=== PATIENT | female | born 1965 | race African-American/Black ===

== ENCOUNTER 2020-11-09 22:04 | Inpatient (IN) | payer SELFPAY ==
[2020-11-09] MEDS ORDERED: Diltiazem 125 MG/25 ML ONE (22:50)
[2020-11-09] MEDS ORDERED: Vancomycin 1.5 GRAM/300 ML BAG 1.5 GM in Premix Bag 1 BAG IVPB SCH (23:00)
[2020-11-10] LABS: CKMB 1.6 ng/mL (0-6.6)
[2020-11-10] MEDS ORDERED: Acetaminophen 325 MG TAB PO PRN (00:01)
--- NOTE | 2020-11-10 00:29 | PDOC.BPN ---
- Brief Progress Note [id number] dictated
[2020-11-10] MEDS ORDERED: Heparin 10,000 UNITS/ 10 ML VIAL ONE (01:31)
[2020-11-10] MEDS ORDERED: Heparin 25,000 units/D5W 0 ML ONE (01:31)
[2020-11-10 01:55] LABS: SARS-CoV-2 NAA Rapid Test Not Detected (NotDetected)
[2020-11-10 01:55] LABS: #Lymphocytes 1.4 thou/uL (1.20-3.40); #Monocytes 0.5 thou/uL (0.11-0.59); #Neutrophils 4.8 thou/uL (1.40-6.50); %Basophils 0.6 % (0.0-1.0); %Eosinophils 0.1 % (0.0-10.0); %Lymphocytes 20.2 % (21.0-51.0); %Monocytes 7.4 % (0.0-10.0); %Neutrophils 71.6 % (42.0-75.0); Hemoglobin 9.7 g/dL (12.0-16.0); Mean Corpuscular HGB CONC 30.6 g/dL (32.0-36.0); Mean Corpuscular Hemoglobin 27.4 pg (27.0-31.0); Mean Corpuscular Volume 89.5 fL (78.0-98.0); Mean Platelet Volume 9.2 fL (7.4-10.4); Platelet Count 223 thou/uL (130-400); RBC Distribution Width 17.1 % (11.5-14.5); Red Blood Cell (RBC) Count 3.53 mill/uL (4.20-5.40); White Blood Cell (WBC) Count 6.3 thou/uL (4.8-10.8)
[2020-11-10 02:11] LABS: Anion Gap 20 mmol/L (10-20); BUN (Urea Nitrogen) 61 mg/dL (9.8-20.1); Calc. Creatinine Clearance 0 mL/min (70-130); Calcium 8.4 mg/dL (7.8-10.44); Carbon Dioxide 18 mmol/L (22-29); Chloride 100 mmol/L (98-107); Glucose 107 mg/dL (70-105); Potassium 5.2 mmol/L (3.5-5.1); Sodium 133 mmol/L (136-145)
[2020-11-10 02:16] LABS: Troponin I 0.046 ng/mL (< 0.028)
[2020-11-10 02:51] LABS: INR-International Normal Ratio 1.4; PTT 27.5 sec (22.9-36.1); Prothrombin Time 17.8 sec (12.0-14.7)
--- NOTE | 2020-11-10 02:51 | HP ---
CHIEF COMPLAINT: Shortness of breath and chest pain. HISTORY OF PRESENT ILLNESS: Ms. Vásquez is a 55-year-old female with past medical history of congestive heart failure, diastolic, atrial fibrillation, hypertension, among others, is being transferred from [facility] after she presented there with chest pain, shortness of breath, cough an hour prior to arrival. The patient reports that she was in the hospital at [facility] a week ago and discharged after 4 days for shortness of breath and possible pneumonia for which she finalized antibiotic few days ago. She was recently admitted to the hospital also for atrial fibrillation, with RVR. At that time, patient was discharged on Coumadin/warfarin. It is unclear if the patient is still taking it or not. PT/INR was not done in the emergency room. It has been ordered, still awaiting the results. The patient was found to be in atrial fibrillation with RVR. She was given diltiazem. Heart rate went down, but when she arrived to our emergency room, her heart rate was in the 140s. The patient started on diltiazem drip. Lab work, the patient was found to have an elevated creatinine of 2.1 with a baseline around 1.4. Potassium is 5.3. BNP is elevated at 2076. D-dimer also was elevated at 8.7. CT of the chest was not, done because of elevated creatinine. Chest x-ray showed cardiomegaly with worsening pulmonary vascular congestion and small bilateral effusions. In the emergency room, patient was given diltiazem, also given Lasix and antibiotics. No obvious source of infection. The patient is being admitted to the hospital for further management. PAST MEDICAL HISTORY: As mentioned above in history of present illness. PAST SURGICAL HISTORY: Reviewed and not pertinent. SOCIAL HISTORY: The patient drinks socially. She currently smokes 1 pack daily. Lives at home with family. ALLERGIES: NO KNOWN ALLERGIES. HOME MEDICATIONS: See home medication reconciliation form for updated medications. REVIEW OF SYSTEMS: Review of 14 systems negative except what is mentioned in the history of present illness. PHYSICAL EXAMINATION: GENERAL: The patient is awake, alert, in moderate distress. VITAL SIGNS: Blood pressure 102/88, pulse is 109, respiratory rate of 22, oxygen saturation 97% on 4 L/minute nasal cannula. HEAD AND NECK: Normocephalic, atraumatic. NECK: Supple. CHEST: Few bibasilar crackles. HEART: Irregularly irregular, tachycardic. ABDOMEN: Soft, nontender. Bowel sounds present. NEUROLOGIC: Awake, moving extremities. PSYCHIATRIC: Unable to assess. EXTREMITIES: Positive for edema. No clubbing or cyanosis. LABORATORY DATA: Troponin 0.04. Creatinine is 2.1. Potassium 5.3. D-dimer is 8.7. IMAGING: Chest x-ray as mentioned above in the history of present illness. ASSESSMENT AND PLAN: 1. Atrial fibrillation with rapid ventricular response. 2. Chest pain, rule out acute coronary syndrome. 3. Congestive heart failure, [id number]. 4. Elevated D-dimer. The patient was supposed to be on warfarin. It is unclear, if she is still taking it. Still awaiting on the PT/INR. In the mean time, patient was started on IV heparin drip, reassessed later, consider CT of the chest, if patient's kidney function improved. Otherwise, she may need a ventilation-perfusion lung scan to rule out pulmonary embolism, which is still in the differential diagnosis. 5. Consult Cardiology in a.m. for evaluation and further recommendations. 6. Reconcile home medications and continue diuresis. 7. Monitor kidney function and urine output. 8. [id number] renal failure. Expected length of stay, 2 midnights or more. Job ID: [id number]
[2020-11-10 03:40] VITALS: BMI 28.1
[2020-11-10] MEDS: Heparin 25,000 units/D5W 500 ML IVPB SCH (04:16)
[2020-11-10] MEDS: Heparin 10,000 UNITS/ 10 ML VIAL SLOW IVP SCH (04:21)
[2020-11-10 05:34] LABS: Troponin I 0.045 ng/mL (< 0.028)
[2020-11-10] MEDS ORDERED: Furosemide 40 MG/4 ML VIAL SLOW IVP SCH (09:00)
[2020-11-10] MEDS: Famotidine 20 MG TAB PO SCH (09:39)
[2020-11-10] MEDS: Metoprolol Tartrate 50 MG TAB PO SCH ×2 (09:39→20:57)
[2020-11-10] MEDS: Aspirin 325 mg Enteric Coated Tablet PO SCH (09:40)
[2020-11-10 11:25] LABS: Hemoglobin 9.5 g/dL (12.0-16.0); Platelet Count 235 thou/uL (130-400)
[2020-11-10] MEDS: Furosemide 40 MG/4 ML VIAL SLOW IVP SCH (13:41)
--- NOTE | 2020-11-10 14:30 | PDOC.HOSPP ---
- Subjective Encounter Date: 11/10/20 Subjective: The patient stated that her shortness of breath is better than yesterday. - Objective Vital Signs & Weight: Vital Signs (12 hours) Temp Pulse Ox 11/10/20 11:41 97.4 F L 11/10/20 07:40 98.1 F 11/10/20 03:32 98.3 F 99 Weight Weight 174 lb 9.698 oz Most Recent Monitor Data Heart Rate from ECG 89 NIBP 97/68 NIBP BP-Mean 101 Respiration from ECG 30 SpO2 96 I&O: 11/09/20 11/10/20 11/11/20 06:59 06:59 06:59 Intake Total 312 Output Total 200 Balance 112 Result Diagrams: 11/10/20 10:54 11/10/20 01:40 Hospitalist ROS - Medication Medications: Active Medications Generic Name Dose Route Start Last Admin Trade Name Freq PRN Reason Stop Dose Admin Acetaminophen 650 mg 11/10/20 00:01 11/10/20 13:41 Acetaminophen 325 Mg Tab PO 650 mg Q4H PRN Administration Headache/Fever/Mild Pain (1-3) Aspirin 325 mg 11/10/20 09:00 11/10/20 09:40 Aspirin 325 Mg Enteric Coated Tablet PO 325 mg DAILY SABINA Administration Famotidine 20 mg 11/10/20 09:00 11/10/20 09:39 Famotidine 20 Mg Tab PO 20 mg QAM SABINA Administration Furosemide 40 mg 11/10/20 14:00 11/10/20 13:41 Furosemide 40 Mg/4 Ml Vial SLOW IVP 40 mg 0600,1400 SABINA Administration Heparin Sodium (Porcine) 0 units 11/10/20 02:30 11/10/20 04:21 Heparin 10,000 Units/ 10 Ml Vial SLOW IVP 4,000 unit ASDIR SABINA Administration Protocol Heparin Sodium/Dextrose 500 mls @ 0 mls/hr 11/10/20 02:30 11/10/20 04:16 Heparin 25,000 Units/D5w IVPB 500 mls INF SABINA Administration Protocol Per Protocol Metoprolol Tartrate 50 mg 11/10/20 09:00 11/10/20 09:39 Metoprolol Tartrate 50 Mg Tab PO 50 mg BID SABINA Administration - Exam General Appearance: awake alert ENT: normocephalic atraumatic Neck: supple, no JVD Heart: irregular Respiratory: normal chest expansion, no tachypnea, rhonchi Gastrointestinal: soft Extremities: no cyanosis Hosp A/P (1) Acute on chronic heart failure with preserved ejection fraction Code(s): I50.33 - ACUTE ON CHRONIC DIASTOLIC (CONGESTIVE) HEART FAILURE Status: Acute (2) Atrial fibrillation with rapid ventricular response Code(s): I48.91 - UNSPECIFIED ATRIAL FIBRILLATION Status: Acute (3) Hypertension Code(s): I10 - ESSENTIAL (PRIMARY) HYPERTENSION Status: Acute (4) Acute respiratory failure with hypoxia Code(s): J96.01 - ACUTE RESPIRATORY FAILURE WITH HYPOXIA Status: Acute - Plan The patient is a 55-year-old female with past medical history of heart failure with preserved ejection fraction, atrial fibrillation, and hypertension who was admitted to the hospital for shortness of breath and chest pain. She was found to be in A. fib with RVR. The patient was on anticoagulation with warfarin but she has not been compliant. Currently in addition to IV diuresis the patient was placed on heparin drip to bridge to warfarin. We are her rate controlling her with diltiazem. Cardiology service consulted.
--- NOTE | 2020-11-10 16:29 | CON ---
DATE OF CONSULTATION: 11/10/2020 INDICATION FOR CONSULTATION: This is a 55-year-old female with atrial fibrillation. We were asked to see her and also she had a rapid ventricular response. HISTORY OF PRESENT ILLNESS: This is a very unfortunate 55-year-old female, was recently admitted to the hospital over at [facility]. She was seen by Dr. Potts on 10/19/2020 for atrial fibrillation. His note can be found in the chart in the computer. She has had some increasing shortness of breath. She does have a history of tobacco abuse. She has had a history of pneumonias recently. She apparently was doing quite well and was sent home supposedly on Coumadin therapy and metoprolol and then was to have followup. She did not do followup and it does not appear that she has been taking the Coumadin. Her list of medications do not include that. She has only taken aspirin, metoprolol, furosemide, and cefdinir. At this time, she says she was sitting at home. She actually was discharged this past Wednesday from the hospital at [facility] and then she presents here. She said last night, she was sitting at home, having dinner with her sister, suddenly became short of breath and presented here to the emergency room and was admitted for further evaluation. At this time, she remains in atrial fibrillation. She does appear to be somewhat uncomfortable. She is still short of breath. She has been placed back on metoprolol at 50 mg b.i.d. as well as diuretics. Her chest x-ray does show cardiomegaly and congestion. She did have an echocardiogram performed at [facility] on her last admission there, which showed ejection fraction of 60% to 65% with severe left atrial dilatation as well as severe mitral valve regurgitation. She denies any chest pain and she said that she has not had a cardiac catheterization. She is uncertain if she even had a stress test. PAST MEDICAL HISTORY: Significant for tobacco abuse, recent pneumonia, atrial fibrillation. ALLERGIES: NONE. MEDICATIONS: Prior to being admitted, she was taking; 1. Aspirin 81 mg a day. 2. Cefdinir 300 mg b.i.d. 3. Metoprolol 25 mg twice a day. 4. Furosemide 20 mg once a day. REVIEW OF SYSTEMS: Mainly, she complains of shortness of breath. Otherwise, 12-point review of systems is relatively unremarkable. PHYSICAL EXAMINATION: GENERAL: Reveals a thin stature female, who is in no acute distress, but does feel little bit uncomfortable and is more short of breath when she is lying down flat. VITAL SIGNS: Show a blood pressure of 97/68, earlier it was 107/53. She has had other blood pressures in the 80s to 90s systolically with diastolics in the 50s to 70s. Her heart rate is 88 at this time and shows atrial fibrillation, thus increased up to 110. Respiratory rate anywhere between 12 to 30 according to the records. O2 saturation is 97%. She is afebrile. HEENT: Head to be normocephalic and atraumatic. Carotid pulses are present. I did not hear any significant bruits. CHEST: Bilateral rales in the bases, also decreased respiratory sounds. I do not hear any rhonchi or wheezing. CARDIOVASCULAR: Reveals an irregularly irregular rhythm. She has a systolic murmur at the apex, 3/6. There were no other significant abnormalities noted. ABDOMEN: Unremarkable. She had positive bowel sounds. No significant abnormalities or tenderness are noted. Femoral pulses are decreased. Pedal pulses are difficult to palpate. I could not palpate the pedal pulses very easily. The popliteal pulses also were decreased, but are present. NEUROLOGIC: She appears to be intact. There was no gross focal deficits noted. LABORATORY DATA AND IMAGING STUDIES: Shows a WBC of 6.3, hematocrit was 31.6 with a hemoglobin 9.7, platelet count 223,000. Troponin-I is unremarkable is 0.04 and has remained at 0.04 to 0.05. Her sodium is 133, potassium 5.2, BUN 61, creatinine 2.16. Blood sugar was 107. EKG shows atrial fibrillation. Chest x-ray shows cardiomegaly with congestion and bilateral pleural effusions. Her creatinine back in September was 1.49, has now increased up to 2.16 with a BUN of 61. She may be slightly dehydrated. According to the records, she had a normal ejection fraction of 60% to 65%, and we could certainly advise increasing her IV fluids. She does have severe mitral valve regurgitation as well as severe left atrial dilatation and some of her congestion may be due to mitral valve regurgitation or due to continued pneumonia. IMPRESSION: 1. Again, atrial fibrillation with rapid ventricular response. We will resume her metoprolol that has already been ordered and hopefully the rate remains stable. If not, we may need to start her on digoxin, but certainly with the renal function at 2.16 to be somewhat dangerous to start digoxin. If we cannot control the heart rate, then we may need to add diltiazem. 2. She needs to be on oral anticoagulation for the atrial fibrillation to decrease the risk of embolic phenomenon. 3. History of tobacco abuse. She needs to absolutely stop smoking. 4. Severe mitral valve regurgitation. This may need to be dealt with. She may need to undergo mitral valve clip, depending on how she progresses. 5. History of chronic anemia of uncertain etiology. This may need to be further evaluated. Apparently, she has some type of lymphadenopathy. She had a CT scan performed. This may need to be also evaluated. 6. What appears to be peripheral vascular disease with decreased femoral popliteal and pedal pulses. Further recommendation will depend on how she responds to medical management at this time. I would agree with the present management. With the metoprolol, we will need to initiate some type of anticoagulation. She is not actually on heparin, that will suffice at this time. She had been on Lasix I believe, we can continue this, but would certainly be very careful not to worsen her renal function. She may need to be seen by Nephrology. Job ID: [id number]
[2020-11-10] MEDS ORDERED: FLU VACC QS2020-21(6MOS UP)/PF 60 MCG/0.5 ML SYRINGE IM ONE (21:00)
[2020-11-11] MEDS: Furosemide 40 MG/4 ML VIAL SLOW IVP SCH ×2 (06:17→14:21)
[2020-11-11] MEDS: Heparin 25,000 units/D5W 500 ML IVPB SCH (07:09)
[2020-11-11] MEDS: Famotidine 20 MG TAB PO SCH (10:02)
[2020-11-11] MEDS: Aspirin 325 mg Enteric Coated Tablet PO SCH (10:02)
[2020-11-11] MEDS: Metoprolol Tartrate 50 MG TAB PO SCH ×3 (10:02→23:21)
[2020-11-11] MEDS: Warfarin Sodium 5 MG TAB PO SCH (18:20)
--- NOTE | 2020-11-11 18:58 | PDOC.HOSPP ---
- Subjective Encounter Date: 11/11/20 Subjective: The patient's respiratory status is improving. Her rate is controlled. She has no new complaints today. - Objective Vital Signs & Weight: Vital Signs (12 hours) Temp Pulse Ox 11/11/20 11:00 97.7 F 11/11/20 08:09 96 11/11/20 07:00 97.2 F L Weight Weight 175 lb Most Recent Monitor Data Heart Rate from ECG 89 NIBP 97/66 NIBP BP-Mean 76 Respiration from ECG 22 SpO2 71 I&O: 11/10/20 11/11/20 11/12/20 06:59 06:59 06:59 Intake Total 312 664 Output Total 200 3917 606 Balance 611 -585 -389 Result Diagrams: 11/12/20 03:28 11/12/20 03:28 Hospitalist ROS - Medication Medications: Active Medications Generic Name Dose Route Start Last Admin Trade Name Freq PRN Reason Stop Dose Admin Acetaminophen 650 mg 11/10/20 00:01 11/10/20 13:41 Acetaminophen 325 Mg Tab PO 650 mg Q4H PRN Administration Headache/Fever/Mild Pain (1-3) Aspirin 325 mg 11/10/20 09:00 11/11/20 10:02 Aspirin 325 Mg Enteric Coated Tablet PO 325 mg DAILY SABINA Administration Famotidine 20 mg 11/10/20 09:00 11/11/20 10:02 Famotidine 20 Mg Tab PO 20 mg QAM SABINA Administration Furosemide 40 mg 11/10/20 14:00 11/11/20 14:21 Furosemide 40 Mg/4 Ml Vial SLOW IVP 40 mg 0600,1400 SABINA Administration Heparin Sodium (Porcine) 0 units 11/10/20 02:30 11/10/20 04:21 Heparin 10,000 Units/ 10 Ml Vial SLOW IVP 4,000 unit ASDIR SABINA Administration Protocol Heparin Sodium/Dextrose 500 mls @ 0 mls/hr 11/10/20 02:30 11/11/20 07:09 Heparin 25,000 Units/D5w IVPB 500 mls INF SABINA Administration Protocol Per Protocol Metoprolol Tartrate 50 mg 11/10/20 09:00 11/11/20 10:02 Metoprolol Tartrate 50 Mg Tab PO 50 mg BID SABINA Administration Warfarin Sodium 5 mg 11/11/20 17:00 11/11/20 18:20 Warfarin Sodium 5 Mg Tab PO 5 mg 1700 SABINA Administration - Exam General Appearance: awake alert ENT: normocephalic atraumatic Neck: supple, no JVD Heart: irregular Respiratory: normal chest expansion, no tachypnea, rhonchi Gastrointestinal: soft Neurological: cranial nerve grossly intact, no focal deficits Hosp A/P (1) Acute on chronic heart failure with preserved ejection fraction Code(s): I50.33 - ACUTE ON CHRONIC DIASTOLIC (CONGESTIVE) HEART FAILURE Status: Acute (2) Atrial fibrillation with rapid ventricular response Code(s): I48.91 - UNSPECIFIED ATRIAL FIBRILLATION Status: Acute (3) Hypertension Code(s): I10 - ESSENTIAL (PRIMARY) HYPERTENSION Status: Acute (4) Acute respiratory failure with hypoxia Code(s): J96.01 - ACUTE RESPIRATORY FAILURE WITH HYPOXIA Status: Acute - Plan The patient is a 55-year-old female with past medical history of heart failure with preserved ejection fraction, atrial fibrillation, and hypertension who was admitted to the hospital for shortness of breath and chest pain. She was found to be in A. fib with RVR. The patient was on anticoagulation with warfarin but she has not been compliant. Currently in addition to IV diuresis the patient was placed on heparin drip to bridge to warfarin. Check INR daily. She is currently rate controlled on metoprolol. Continue IV diuresis. The patient's anemia is normocytic normochromic, mild and chronic. This has been reported since 2014. No indication for work-up in the acute setting. The patient can follow with his PCP for anemia work-up. The patient also has suspicious lung lesion that was addressed during the recent hospital stay. Repeat CT scan of the chest was recommended in 3 months to evaluate the progression or resolution of the lesion.
[2020-11-12 03:59] LABS: #Eosinphils 0.1 thou/uL (0.0-0.7); #Lymphocytes 1.4 thou/uL (1.20-3.40); #Monocytes 0.5 thou/uL (0.11-0.59); #Neutrophils 3.3 thou/uL (1.40-6.50); %Basophils 0.6 % (0.0-1.0); %Eosinophils 1.6 % (0.0-10.0); %Lymphocytes 26.3 % (21.0-51.0); %Monocytes 9.5 % (0.0-10.0); Hemoglobin 10.3 g/dL (12.0-16.0); Mean Corpuscular HGB CONC 32.9 g/dL (32.0-36.0); Mean Corpuscular Hemoglobin 29.5 pg (27.0-31.0); Mean Corpuscular Volume 89.5 fL (78.0-98.0); Mean Platelet Volume 8.7 fL (7.4-10.4); Platelet Count 242 thou/uL (130-400); RBC Distribution Width 17.3 % (11.5-14.5); White Blood Cell (WBC) Count 5.3 thou/uL (4.8-10.8)
[2020-11-12 04:16] LABS: Anion Gap 16 mmol/L (10-20); BUN (Urea Nitrogen) 72 mg/dL (9.8-20.1); Calc. Creatinine Clearance 37 mL/min (70-130); Calcium 8.3 mg/dL (7.8-10.44); Carbon Dioxide 21 mmol/L (22-29); Chloride 99 mmol/L (98-107); Glucose 101 mg/dL (70-105); Potassium 3.8 mmol/L (3.5-5.1); Sodium 132 mmol/L (136-145)
[2020-11-12] MEDS: Furosemide 40 MG/4 ML VIAL SLOW IVP SCH ×2 (05:54→16:09)
[2020-11-12] MEDS: Heparin 25,000 units/D5W 500 ML IVPB SCH (05:54)
[2020-11-12] MEDS: Famotidine 20 MG TAB PO SCH (09:11)
[2020-11-12] MEDS: Metoprolol Tartrate 50 MG TAB PO SCH ×2 (09:11→20:45)
[2020-11-12] MEDS: Aspirin 325 mg Enteric Coated Tablet PO SCH (09:11)
[2020-11-12 12:29] LABS: INR-International Normal Ratio 1.2; Prothrombin Time 15.1 sec (12.0-14.7)
[2020-11-12] MEDS: Warfarin Sodium 5 MG TAB PO SCH (16:10)
--- NOTE | 2020-11-12 17:58 | PDOC.HOSPP ---
- Subjective Encounter Date: 11/12/20 Subjective: No new complaints. - Objective Vital Signs & Weight: Vital Signs (12 hours) Temp Pulse Ox 11/12/20 15:58 97.3 F L 11/12/20 11:24 97.6 F 11/12/20 07:51 93 L 11/12/20 07:00 97.4 F L Weight Weight 173 lb Most Recent Monitor Data Heart Rate from ECG 91 NIBP 104/71 NIBP BP-Mean 82 Respiration from ECG 24 SpO2 88 I&O: 11/11/20 11/12/20 11/13/20 06:59 06:59 06:59 Intake Total 664 619 Output Total 1300 1450 Balance -529 -022 Result Diagrams: 11/12/20 03:28 11/12/20 03:28 Hospitalist ROS - Medication Medications: Active Medications Generic Name Dose Route Start Last Admin Trade Name Freq PRN Reason Stop Dose Admin Acetaminophen 650 mg 11/10/20 00:01 11/10/20 13:41 Acetaminophen 325 Mg Tab PO 650 mg Q4H PRN Administration Headache/Fever/Mild Pain (1-3) Aspirin 325 mg 11/10/20 09:00 11/12/20 09:11 Aspirin 325 Mg Enteric Coated Tablet PO 325 mg DAILY SABINA Administration Famotidine 20 mg 11/10/20 09:00 11/12/20 09:11 Famotidine 20 Mg Tab PO 20 mg QAM SABINA Administration Furosemide 40 mg 11/10/20 14:00 11/12/20 16:09 Furosemide 40 Mg/4 Ml Vial SLOW IVP 40 mg 0600,1400 SABINA Administration Heparin Sodium (Porcine) 0 units 11/10/20 02:30 11/10/20 04:21 Heparin 10,000 Units/ 10 Ml Vial SLOW IVP 4,000 unit ASDIR SABINA Administration Protocol Heparin Sodium/Dextrose 500 mls @ 0 mls/hr 11/10/20 02:30 11/12/20 05:54 Heparin 25,000 Units/D5w IVPB 500 mls INF SABINA Administration Protocol Per Protocol Metoprolol Tartrate 50 mg 11/10/20 09:00 11/12/20 09:11 Metoprolol Tartrate 50 Mg Tab PO 50 mg BID SABINA Administration Warfarin Sodium 5 mg 11/11/20 17:00 11/12/20 16:10 Warfarin Sodium 5 Mg Tab PO 5 mg 1700 SABINA Administration - Exam General Appearance: awake alert ENT: normocephalic atraumatic Neck: supple, no JVD Heart: irregular Respiratory: normal chest expansion, no tachypnea Neurological: cranial nerve grossly intact, no focal deficits Hosp A/P (1) Acute on chronic heart failure with preserved ejection fraction Code(s): I50.33 - ACUTE ON CHRONIC DIASTOLIC (CONGESTIVE) HEART FAILURE Status: Acute (2) Atrial fibrillation with rapid ventricular response Code(s): I48.91 - UNSPECIFIED ATRIAL FIBRILLATION Status: Acute (3) Hypertension Code(s): I10 - ESSENTIAL (PRIMARY) HYPERTENSION Status: Acute (4) Acute respiratory failure with hypoxia Code(s): J96.01 - ACUTE RESPIRATORY FAILURE WITH HYPOXIA Status: Acute - Plan The patient is a 55-year-old female with past medical history of heart failure with preserved ejection fraction, atrial fibrillation, and hypertension who was admitted to the hospital for shortness of breath and chest pain. She was found to be in A. fib with RVR. The patient was on anticoagulation with warfarin but she has not been compliant. Currently in addition to IV diuresis the patient was placed on heparin drip to bridge to warfarin. Check INR daily. She is currently rate controlled on metoprolol. Continue IV diuresis. She is saturating well on room air and should be medically ready for DC once cleared by cardiology. The patient's anemia is normocytic normochromic, mild and chronic. This has been reported since 2013. No indication for work-up in the acute setting. The patient can follow with his PCP for anemia work-up. The patient also has suspicious lung lesion that was addressed during the recent hospital stay. Repeat CT scan of the chest was recommended in 3 months to evaluate the progression or resolution of the lesion.
[2020-11-13 04:40] LABS: #Eosinphils 0.1 thou/uL (0.0-0.7); #Lymphocytes 1.2 thou/uL (1.20-3.40); #Monocytes 0.2 thou/uL (0.11-0.59); #Neutrophils 2.6 thou/uL (1.40-6.50); %Basophils 0.2 % (0.0-1.0); %Eosinophils 3.2 % (0.0-10.0); %Lymphocytes 29.1 % (21.0-51.0); %Monocytes 5.6 % (0.0-10.0); %Neutrophils 61.9 % (42.0-75.0); Hemoglobin 9.4 g/dL (12.0-16.0); Mean Corpuscular HGB CONC 31.9 g/dL (32.0-36.0); Mean Corpuscular Hemoglobin 28.7 pg (27.0-31.0); Mean Platelet Volume 9.2 fL (7.4-10.4); Platelet Count 240 thou/uL (130-400); RBC Distribution Width 17.3 % (11.5-14.5); Red Blood Cell (RBC) Count 3.29 mill/uL (4.20-5.40); White Blood Cell (WBC) Count 4.2 thou/uL (4.8-10.8)
[2020-11-13 05:08] LABS: Anion Gap 11 mmol/L (10-20); BUN (Urea Nitrogen) 49 mg/dL (9.8-20.1); Calc. Creatinine Clearance 58 mL/min (70-130); Calcium 8.1 mg/dL (7.8-10.44); Carbon Dioxide 29 mmol/L (22-29); Chloride 99 mmol/L (98-107); Glucose 94 mg/dL (70-105); Potassium 3.7 mmol/L (3.5-5.1); Sodium 135 mmol/L (136-145)
[2020-11-13] MEDS: Heparin 25,000 units/D5W 500 ML IVPB SCH (05:31)
[2020-11-13 05:35] LABS: PTT 28.7 sec (22.9-36.1)
[2020-11-13 05:36] LABS: INR-International Normal Ratio 1.1; Prothrombin Time 14.8 sec (12.0-14.7)
[2020-11-13] MEDS: Heparin 10,000 UNITS/ 10 ML VIAL SLOW IVP SCH ×2 (06:20→13:04)
[2020-11-13] MEDS: Famotidine 20 MG TAB PO SCH (09:35)
[2020-11-13] MEDS: Furosemide 20 MG TAB PO SCH (09:37)
[2020-11-13] MEDS: Aspirin 325 mg Enteric Coated Tablet PO SCH (09:37)
[2020-11-13] MEDS: Metoprolol Tartrate 50 MG TAB PO SCH (12:55)
[2020-11-13] MEDS ORDERED: Heparin 25,000 units/D5W 500 ML IV SCH (13:30)
[2020-11-13] MEDS ORDERED: Heparin 10,000 UNITS/ 10 ML VIAL SLOW IVP SCH ×2 (13:30→14:15)
--- NOTE | 2020-11-13 14:17 | PDOC.HOSPP ---
- Subjective Encounter Date: 11/13/20 Subjective: Patient was hypotensive this morning. She did not have any symptoms during the episode. - Objective Vital Signs & Weight: Vital Signs (12 hours) Temp Pulse Resp BP Pulse Ox 11/13/20 12:53 98.4 F 104 H 18 98/57 L 93 L 11/13/20 09:32 86/53 L 11/13/20 08:30 95/58 L 11/13/20 07:44 85/67 L 11/13/20 07:36 98 11/13/20 07:27 97.5 F L 105 H 18 78/60 L 98 11/13/20 03:11 97.5 F L 108 H 18 102/57 L 95 Weight Weight 140 lb 9 oz Most Recent Monitor Data Heart Rate from ECG 100 NIBP 95/73 NIBP BP-Mean 80 Respiration from ECG 17 SpO2 88 I&O: 11/12/20 11/13/20 11/14/20 06:59 06:59 06:59 Intake Total 619 1610 Output Total 1450 2500 Balance -831 -890 Result Diagrams: 11/13/20 04:14 11/13/20 04:14 Hospitalist ROS - Medication Medications: Active Medications Generic Name Dose Route Start Last Admin Trade Name Freq PRN Reason Stop Dose Admin Acetaminophen 650 mg 11/10/20 00:01 11/10/20 13:41 Acetaminophen 325 Mg Tab PO 650 mg Q4H PRN Administration Headache/Fever/Mild Pain (1-3) Famotidine 20 mg 11/10/20 09:00 11/13/20 09:35 Famotidine 20 Mg Tab PO 20 mg QAM SABINA Administration Furosemide 20 mg 11/13/20 09:00 11/13/20 09:37 Furosemide 20 Mg Tab PO Not Given DAILY SABINA Metoprolol Tartrate 50 mg 11/10/20 09:00 11/13/20 12:55 Metoprolol Tartrate 50 Mg Tab PO 50 mg BID SABINA Administration - Exam General Appearance: awake alert ENT: normocephalic atraumatic Neck: supple, no JVD Respiratory: normal chest expansion, no tachypnea Extremities: no cyanosis Neurological: cranial nerve grossly intact Hosp A/P (1) Acute on chronic heart failure with preserved ejection fraction Code(s): I50.33 - ACUTE ON CHRONIC DIASTOLIC (CONGESTIVE) HEART FAILURE Status: Acute (2) Atrial fibrillation with rapid ventricular response Code(s): I48.91 - UNSPECIFIED ATRIAL FIBRILLATION Status: Acute (3) Hypertension Code(s): I10 - ESSENTIAL (PRIMARY) HYPERTENSION Status: Acute (4) Acute respiratory failure with hypoxia Code(s): J96.01 - ACUTE RESPIRATORY FAILURE WITH HYPOXIA Status: Acute - Plan The patient is a 55-year-old female with past medical history of heart failure with preserved ejection fraction, atrial fibrillation, and hypertension who was admitted to the hospital for shortness of breath and chest pain. She was found to be in A. fib with RVR. The patient was on anticoagulation with warfarin but she has not been compliant. Currently in addition to IV diuresis the patient was placed on heparin drip to bridge to warfarin. Check INR daily. She is currently rate controlled on metoprolol. She is saturating well on room air. Diuretics were held today due to hypotension. Continue heparin until INR is therapeutic. The patient's anemia is normocytic normochromic, mild and chronic. This has been reported since 2014. No indication for work-up in the acute setting. The patient can follow with his PCP for anemia work-up. The patient also has suspicious lung lesion that was addressed during the recent hospital stay. Repeat CT scan of the chest was recommended in 3 months to evaluate the progression or resolution of the lesion.
[2020-11-13] MEDS: Heparin 25,000 units/D5W 500 ML IV SCH (14:48)
--- NOTE | 2020-11-13 16:23 | PDOC.CPN ---
- Subjective Date: 11/13/20 Time: 14:00 Interval history: Patient was hypotensive overnight, she denies any dizziness or weakness. Patient states she had a good night and slept well, she denies any palpitations, chest pain, shortness of breath. - Review of Systems General: denies: fever/chills, weight/appetite/sleep changes, night sweats, fatigue Respiratory: denies: cough, congestion, shortness of breath, exercise intolerance Cardiovascular: denies: chest pain, palpitation, edema, paroxysmal nocturnal dyspnea, orthopnea Gastrointestinal: denies: nausea, vomiting, diarrhea, constipation, abd pain, GI bleeding Musculoskeletal: denies: pain, tenderness, stiffness, swelling, arthritis/arthralgias Neurological: denies: numbness, syncope, seizure, weakness - Objective Allergies/Adverse Reactions: Allergies Allergy/AdvReac Type Severity Reaction Status Date / Time No Known Allergies Allergy Verified 09/23/14 00:27 Visit Medications: Current Medications Acetaminophen (Acetaminophen 325 Mg Tab) 650 mg PO Q4H PRN PRN Reason: Headache/Fever/Mild Pain (1-3) Last Admin: 11/10/20 13:41 Dose: 650 mg Documented by: Aspirin (Aspirin 81 Mg Enteric Coated Tablet) 81 mg PO DAILY [facility] Famotidine (Famotidine 20 Mg Tab) 20 mg PO QAM [facility] Last Admin: 11/13/20 09:35 Dose: 20 mg Documented by: Furosemide (Furosemide 20 Mg Tab) 20 mg PO DAILY [facility] Last Admin: 11/13/20 09:37 Dose: Not Given Documented by: Heparin Sodium (Porcine) (Heparin 10,000 Units/ 10 Ml Vial) 0 units SLOW IVP WILLCALL [facility] Last Admin: 11/13/20 14:48 Dose: 2,376 unit Documented by: Heparin Sodium/Dextrose (Heparin 25,000 Units/D5w) 500 mls @ 0 mls/hr IV INF [facility]; Protocol Last Admin: 11/13/20 14:48 Dose: 500 mls Documented by: Metoprolol Tartrate (Metoprolol Tartrate 50 Mg Tab) 50 mg PO BID [facility] Last Admin: 11/13/20 12:55 Dose: 50 mg Documented by: Warfarin Sodium (Warfarin Sodium 7.5 Mg Tab) 7.5 mg PO 1700 [facility] Vital Signs & Weight: Vital Signs Temp Pulse Resp BP Pulse Ox 11/13/20 12:53 98.4 F 104 H 18 98/57 L 93 L 11/13/20 09:32 86/53 L 11/13/20 08:30 95/58 L 11/13/20 07:44 85/67 L 11/13/20 07:36 98 11/13/20 07:27 97.5 F L 105 H 18 78/60 L 98 Weight 140 lb 9 oz - Quality Measures Condition: Atrial Fibrillation/Flutter (hx or current), Heart Failure CV meds: Beta Aydin: Yes, RENETTA/ARB: No (Hypotension), ASA: Yes, Anticoagulant: Yes - Medication Contraindications No RENETTA/ARB reason: Medical contraindication - Physical Exam General: alert & oriented x3, appears well, no apparent distress HEENT: mucus membranes moist Neck: supple neck, midline trachea, no JVD/HJR, no masses, no bruit Cardiac: irregularly regular, systolic murmur Lungs: clear to auscultation, normal breath sounds, normal exam, no wheeze, rales, rhonchi Neuro: grossly intact, motor function intact, sensory function intact Abdomen: active bowel sounds, soft, non-tender Extremities: no cyanosis, no clubbing, no edema, 2+ popliteal, 2+ Posterior Tibial, 2+ Dorsalis Pedus Skin: clear Musculoskeletal: normal range of motion, no pain, no fluid collection - Labs Result Diagrams: 11/13/20 04:14 11/13/20 04:14 Troponin/CKMB CK-MB (CK-2) 1.6 ng/mL (0-6.6) 11/09/20 23:00 Troponin I 0.045 ng/mL (< 0.028) H 11/10/20 04:54 - EKG Interpretation EKG Method: Telemetry EKG shows: atrial fibrillation - Assessment/Plan Assessment/Plan: 1. Atrial fibrillation with rapid ventricular response: Patient remains in a- fib, her heart rate has maintained in the 80's overnight, she did have one small episode this morning at 0600 where her HR elevated to the 120's, this did not sustain. She is being re-started on Coumadin, she remains on the Heparin drip until her INR reaches 2.0. 2. History of tobacco abuse: strongly advised smoking cessation 3. Severe mitral valve regurgitation: She may need a mitral clip in the future, she seems to be asymptomatic at this time, she denies any chest pain, shortness of breath, ORDONEZ, orthopnea, BLE edema. She has seen Dr. Bustamante in the past, she can follow-up with him as an outpatient for this since she is asymptomatic at this time. 4. History of chronic anemia: treated by primary care services 5. Hypotension: the patient had several readings of hypotension over night, the patient was asymptomatic. Her dose of Lasix was held. 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 She will need to follow-up with Coumadin clinic and Dr. Bustamante as an outpatient. Pt.seen and eval.by me I agree with the A/P by the HOG RAISER. Chest clear. Irreg/irreeg. No edema. Home when INR stable [facility]
[2020-11-13] MEDS: Warfarin Sodium 7.5 MG TAB PO SCH (16:41)
[2020-11-13] MEDS: Metoprolol Tartrate 25 MG TAB PO SCH (20:52)
[2020-11-13 21:32] LABS: PTT 133.8 sec (22.9-36.1)
[2020-11-14] MEDS: Heparin 25,000 units/D5W 500 ML IV SCH (04:26)
[2020-11-14 04:43] LABS: #Eosinphils 0.1 thou/uL (0.0-0.7); #Lymphocytes 1.3 thou/uL (1.20-3.40); #Monocytes 0.5 thou/uL (0.11-0.59); #Neutrophils 3.2 thou/uL (1.40-6.50); %Basophils 0.7 % (0.0-1.0); %Monocytes 8.7 % (0.0-10.0); %Neutrophils 62.5 % (42.0-75.0); Hemoglobin 8.9 g/dL (12.0-16.0); Mean Corpuscular HGB CONC 31.2 g/dL (32.0-36.0); Mean Corpuscular Hemoglobin 27.5 pg (27.0-31.0); Mean Platelet Volume 8.5 fL (7.4-10.4); Platelet Count 235 thou/uL (130-400); RBC Distribution Width 17.2 % (11.5-14.5); Red Blood Cell (RBC) Count 3.23 mill/uL (4.20-5.40); White Blood Cell (WBC) Count 5.1 thou/uL (4.8-10.8)
[2020-11-14 04:46] LABS: INR-International Normal Ratio 1.3; Prothrombin Time 16.9 sec (12.0-14.7)
[2020-11-14 04:53] LABS: PTT 125.8 sec (22.9-36.1)
[2020-11-14 05:12] LABS: Anion Gap 13 mmol/L (10-20); BUN (Urea Nitrogen) 38 mg/dL (9.8-20.1); Calc. Creatinine Clearance 44 mL/min (70-130); Calcium 8.1 mg/dL (7.8-10.44); Carbon Dioxide 26 mmol/L (22-29); Chloride 99 mmol/L (98-107); Glucose 114 mg/dL (70-105); Potassium 3.5 mmol/L (3.5-5.1); Sodium 134 mmol/L (136-145)
[2020-11-14] MEDS ORDERED: Aspirin 81 mg Enteric Coated Tablet PO SCH (09:00)
[2020-11-14] MEDS: Furosemide 20 MG TAB PO SCH (09:08)
[2020-11-14] MEDS: Famotidine 20 MG TAB PO SCH (09:08)
[2020-11-14] MEDS: Metoprolol Tartrate 25 MG TAB PO SCH (09:08)
[2020-11-14 13:20] LABS: PTT 143.3 sec (22.9-36.1)
--- NOTE | 2020-11-14 13:28 | PDOC.DS.DS ---
Provider - Provider Date of Admission: 11/09/20 23:44 Date of Discharge: 11/14/20 Admitting Provider: Eitan Wong MD Primary Care Physician: ALVINO SILVA MD Course - Hospital Course Hospital Course: The patient is a 55-year-old female with past medical history of atrial fibrillation on anticoagulation with Coumadin and severe mitral valve regurgitation who was admitted to the hospital for worsening shortness of breath. She was found to be in atrial fibrillation with rapid ventricular response and was placed on diltiazem drip for rate control. This was s ubsequently transitioned to oral metoprolol and rate control was achieved. The patient was on digoxin at home which was discontinued due to abnormal kidney function. She was diuresed gently leading to improvement of her shortness of breath which was likely due to mild pulmonary edema. Cardiology recommended that the patient's mitral valve regurgitation to be dealt with at some point. 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 Resuscitation Status: 11/10/20 00:01 Resuscitation Status Routine Resuscitation Status: FULL: Full Resuscitation - Labs Lab Results: 11/14/20 04:25 11/14/20 04:25 Abnormal Lab Results - Last 48 hrs 11/12/20 16:22: APTT 66.3 H 11/13/20 04:14: Sodium 135 L, BUN 49 H, Creatinine 1.33 H 11/13/20 04:14: WBC 4.2 L, RBC 3.29 L, Hgb 9.4 L, Hct 29.6 L, MCHC 31.9 L, RDW 17.3 H 11/13/20 04:14: PT 14.8 H 11/13/20 12:25: APTT 57.0 H 11/13/20 20:51: APTT 133.8 H* 11/14/20 00:33: APTT 41.4 H 11/14/20 04:25: Sodium 134 L, BUN 38 H, Creatinine 1.43 H 11/14/20 04:25: RBC 3.23 L, Hgb 8.9 L, Hct 28.5 L, MCHC 31.2 L, RDW 17.2 H 11/14/20 04:25: PT 16.9 H, APTT 125.8 H* 11/14/20 12:56: APTT 143.3 H* - Physical Exam Vitals: Vital Signs (12 hours) Temp Pulse Resp BP Pulse Ox 11/14/20 12:26 97.8 F 102 H 18 100/56 L 97 11/14/20 08:41 98.8 F 104 H 20 98/62 98 11/14/20 04:00 98.8 F 106 H 18 121/70 97 Weight Weight 171 lb Most Recent Monitor Data Heart Rate from ECG 100 NIBP 95/73 NIBP BP-Mean 80 Respiration from ECG 17 SpO2 88 Physical Exam: The patient was seen and examined on the day of discharge. Problem - Problem (1) Acute on chronic heart failure with preserved ejection fraction Code(s): I50.33 - ACUTE ON CHRONIC DIASTOLIC (CONGESTIVE) HEART FAILURE Status: Acute (2) Atrial fibrillation with rapid ventricular response Code(s): I48.91 - UNSPECIFIED ATRIAL FIBRILLATION Status: Acute (3) Hypertension Code(s): I10 - ESSENTIAL (PRIMARY) HYPERTENSION Status: Acute (4) Acute respiratory failure with hypoxia Code(s): J96.01 - ACUTE RESPIRATORY FAILURE WITH HYPOXIA Status: Acute Plan - Discharge Medications Prescriptions: Metoprolol Tartrate [Lopressor] 25 mg PO BID #60 tab Home Medications: Medication Instructions Recorded Confirmed Type Aspirin [Ecotrin Low Strength] 81 mg PO DAILY #30 tab 10/21/20 11/10/20 Rx Warfarin Sodium [Coumadin] 5 mg PO 1700 #30 tab 10/21/20 11/10/20 Rx Metoprolol Tartrate [Lopressor] 25 mg PO BID #60 tab 11/14/20 Rx Allergies: No Known Allergies Allergy (Verified 09/23/14 00:27) PER E.R.VISIT NOTES - Follow up Plan Referrals: ALVINO SILVA MD [Primary Care Provider] - Disposition: HOME Quality - Care Measures CORE MEASURES:: N/A
[2020-11-14 15:59] VITALS: BP 102/62; TEMP 98.5
[2020-11-14] MEDS: Warfarin Sodium 7.5 MG TAB PO SCH (16:36)
== END 2020-11-14 17:14 | disposition home or self-care (01) | DRG 291 ==
LOC: ERS 22:04 → IMCU/EMU 23:44 → 2NO 11-12 21:09
PROVIDERS: ADMIT Internal Medicine; ATTEND Internal Medicine
DX: I13.0 Hypertensive heart and chronic kidney disease with heart failure and stage 1 through stage 4 chronic kidney disease, or unspecified chronic kidney disease (principal); I50.33 Acute on chronic diastolic (congestive) heart failure; J96.01 Acute respiratory failure with hypoxia; N17.9 Acute kidney failure, unspecified; Z20.828 Contact with and (suspected) exposure to other viral communicable diseases; I48.91 Unspecified atrial fibrillation; N18.9 Chronic kidney disease, unspecified; D64.9 Anemia, unspecified; I95.9 Hypotension, unspecified; R79.1 Abnormal coagulation profile; I34.0 Nonrheumatic mitral (valve) insufficiency; Z87.891 Personal history of nicotine dependence; Z71.6 Tobacco abuse counseling
CPT/HCPCS: 0240U; 36415; 80048; 82553; 83605; 84484; 85025; 85610; 85730; 93005; 94760; 96365; 96366; 96368; J1644; J1940; J3370

== ENCOUNTER 2020-11-21 21:22 | Inpatient (IN) | payer SELFPAY ==
[2020-11-21 22:03] LABS: #Lymphocytes 1.3 thou/uL (1.20-3.40); #Monocytes 0.4 thou/uL (0.11-0.59); #Neutrophils 6.6 thou/uL (1.40-6.50); %Basophils 0.2 % (0.0-1.0); %Eosinophils 0.1 % (0.0-10.0); %Lymphocytes 15.5 % (21.0-51.0); %Monocytes 4.3 % (0.0-10.0); Hemoglobin 9.3 g/dL (12.0-16.0); Mean Corpuscular HGB CONC 29.8 g/dL (32.0-36.0); Mean Corpuscular Hemoglobin 25.9 pg (27.0-31.0); Mean Corpuscular Volume 86.9 fL (78.0-98.0); Platelet Count 320 thou/uL (130-400); RBC Distribution Width 17.5 % (11.5-14.5); White Blood Cell (WBC) Count 8.2 thou/uL (4.8-10.8)
[2020-11-21] MEDS ORDERED: Cefepime 2 GM VIAL ONE (22:09)
[2020-11-21 22:17] LABS: ALT (SGPT) 51 U/L (8-55); AST (SGOT) 50 U/L (5-34); Albumin 2.7 g/dL (3.5-5.0); Alkaline Phosphatase 202 U/L (40-110); Anion Gap 29 mmol/L (10-20); BUN (Urea Nitrogen) 117 mg/dL (9.8-20.1); Bilirubin, Total 2.1 mg/dL (0.2-1.2); Calc. Creatinine Clearance 0 mL/min (70-130); Calcium 8.4 mg/dL (7.8-10.44); Carbon Dioxide 12 mmol/L (22-29); Chloride 98 mmol/L (98-107); Globulin 5.6 g/dL (2.4-3.5); Glucose 96 mg/dL (70-105); Potassium 5.9 mmol/L (3.5-5.1); Protein, Total 8.3 g/dL (6.0-8.3); Sodium 133 mmol/L (136-145)
[2020-11-21 22:30] LABS: Bacteria/HPF 4+ HPF (None Seen); Bilirubin 1+ (Negative); Blood, Urine 1+ (Negative); Clarity Extra Turbid (Clear); Glucose, Urine (Dipstick) 50 mg/dL (Negative); Ketone, Urine Negative (Negative); Leukocyte 250 Leu/uL (Negative); Nitrite Negative (Negative); Protein, Urine (Dipstick) 300 mg/dL (Neg-Trace); Specific Gravity, Urine 1.021 (1.002-1.036); Urobilinogen 3 mg/dL (Less than 2); WBC/HPF Greater than 50 HPF (0-3); pH, Urine 5.5 (5.0-9.0)
[2020-11-21 22:31] LABS: Analyzer IN Cardio ER; CO2 Tension 28.6 mmHg (35.0-45.0); Calcium, Ionized (arterial) 1.05 mmol/L (1.12-1.30); Carboxyhemoglobin (COHb) 0.3 gm% (0.0-3.0); Hemoglobin (Hb) 10.1 g/dL (12.0-16.0); O2 Tension (PaO2), arterial 208.1 mmHg (80.0-100.0); Potassium - ABG Lab 5.83 mmol/L (3.70-5.30); pH, Arterial 7.31 (7.35-7.45)
[2020-11-21] MEDS ORDERED: Calcium Chloride 1 GM/10 ML Abboject SYRINGE ONE (22:31)
[2020-11-21] MEDS ORDERED: Dextrose 50% Abboject 50 ML SYRINGE ONE (22:31)
[2020-11-21] MEDS ORDERED: Insulin Regular 300 UNITS/3 ML VIAL ONE (22:31)
[2020-11-21 22:33] LABS: Puncture Site RBA
[2020-11-21] MEDS ORDERED: Vancomycin 1 GM/200 ML BAG ONE (22:47)
[2020-11-21] MEDS ORDERED: Norepinephrine 4 MG/4 ML VIAL ONE (23:20)
[2020-11-21] MEDS ORDERED: Sodium Chloride 0.9% 1,000 ML IV SCH (23:30)
--- NOTE | 2020-11-21 23:34 | PDOC.HHP ---
Hospitalist HPI - History of Present Illness Dyspnea History of Present Illness: This is a 55-year-old female patient with a history of CHF hypertension pneumonia, atrial fibrillation on Coumadin who presents here for 2-day history of worsening shortness of breath. She presented to [place] where she was [facility] evaluated and transferred here for higher level care. Of note she was admitted here on 11/09/2020 discharged on 11/14/2020 on account of worsening shortness of breath and found to be in atrial fibrillation with RVR. Heart rate was controlled on diltiazem drip and subsequently transitioned to oral metoprolol. She was noted to have mitral regurgitation and left atrial enlargement however on cardiology assessment this was to be taking care of an outpatient basis. She was generally stable at the time of discharge. Upon going home however she noticed that she did having palpitations 2 days ago and this was associated with worsening shortness of breath for which she presented to [place]. Over the at presentation she was tachycardic with heart rate of 149, hypotensive with temperature 95.5, saturation 94 on nonrebreather oxygen. Her BP was 71/57. Her labs showed anemia with hemoglobin 9.7 around her baseline at discharge a week ago. She however had mild hyponatremia of 133, potassium 6.0 from 3.5 at last discharge. Creatinine was 5.13 from a baseline of 1.43 a week ago at discharge. A D-dimer was elevated at 7.99 however INR was 3.9. She was in A. fib with RVR. She was given 2 L normal saline, ondansetron, 0.5 mg IV digoxin. Due to the difficulty of peripheral IV line she received a femoral line prior to transfer here for higher level care. On arrival here, she was still hypotensive with systolic blood pressure 78. She received an extra liter of normal saline and started on Levophed BP subsequently improved to systolic in the 120s. Heart rate was 119, respiration 22 and temperature 96.1. Saturation improved was placed on nasal cannula. Heart rate also subsequently improved to the 90s. Repeat labs here showed slight improvement in potassium to 5.9, creatinine was 4.84, lactate was checked and was noted to be 8.4. Anion gap was 23. BNP was 2344 from a baseline of 2076 12 days ago. pH of 7.3, PCO2 28.6. Urinalysis suggestive of infection with protein 300, leukocytes to 50, WBC greater than 50. However has 4 to 6 squamous cells. Vancomycin and cefepime was started she received calcium chloride, dextrose 50% and 10 units of insulin. Hospitalist team was consulted to admit. At the time of my evaluation patient was slightly drowsy but notes she feels significantly better and was breathing well. She was on nasal cannula. She denied any chest pain or palpitations abdominal pain or diarrhea. Hospitalist ROS - Review of Systems Constitutional: denies: fever, chills Respiratory: reports: shortness of breath, SOB with excertion. denies: cough, hemoptysis Cardiovascular: reports: palpitations, paroxysmal noc. dyspnea. denies: chest pain, orthopnea Gastrointestinal: denies: nausea, vomiting, abdominal pain, diarrhea Genitourinary: denies: dysuria, frequency, incontinence, hematuria Musculoskeletal: denies: neck pain, shoulder pain, arm pain, back pain Neurological: denies: weakness, numbness, incoordination All other systems reviewed; all pertinent +/- noted in HPI/Subj - Medication Medications: Allergies: No known drug allergies. Medications: Can refer to ambulatory orders list Hospitalist History - Past Medical History Cardiac: reports: AFIB, CHF, HTN - Past Surgical History Past Surgical History: reports: - Family History Family History: reports: no pertinent history - Social History Smoking Status: Current every day smoker Alcohol: reports: Occassional Living Situation: With Family - Exam General - other findings: Awake, slightly drowsy, not in respiratory distress. ENT: normocephalic atraumatic, no oropharyngeal lesions Heart: RRR, no murmur, no gallops, no rubs Respiratory: CTAB, no wheezes, no rales, no ronchi Gastrointestinal: soft, non-tender, non-distended, normal bowel sounds Extremities: no cyanosis, no clubbing, no edema Neurological: cranial nerve grossly intact, normal sensation to touch, no weakness Psychiatric: normal affect, A&O x 3 Hospitalist Results - Labs Result Diagrams: 11/21/20 21:43 11/22/20 00:28 Lab results: WBC 8.2 thou/uL (4.8-10.8) 11/21/20 21:43 Hgb 9.3 g/dL (12.0-16.0) L 11/21/20 21:43 Hct 31.3 % (36.0-47.0) L 11/21/20 21:43 MCV 86.9 fL (78.0-98.0) 11/21/20 21:43 Plt Count 320 thou/uL (130-400) 11/21/20 21:43 Neutrophils % 80.0 % (42.0-75.0) H 11/21/20 21:43 ABG pH 7.31 (7.35-7.45) L 11/21/20 22:27 ABG pCO2 28.6 mmHg (35.0-45.0) L 11/21/20 22:27 ABG pO2 208.1 mmHg (80.0-100.0) H 11/21/20 22:27 Sodium 133 mmol/L (136-145) L 11/21/20 21:43 Potassium 5.9 mmol/L (3.5-5.1) H 11/21/20 21:43 Chloride 98 mmol/L (98-107) 11/21/20 21:43 Carbon Dioxide 12 mmol/L (22-29) L 11/21/20 21:43 BUN 117 mg/dL (9.8-20.1) H 11/21/20 21:43 Creatinine 4.84 mg/dL (0.6-1.1) H 11/21/20 21:43 Glucose 96 mg/dL (70-105) 11/21/20 21:43 Lactic Acid 8.4 mmol/L (0.5-2.2) H* 11/21/20 21:43 Calcium 8.4 mg/dL (7.8-10.44) 11/21/20 21:43 Total Bilirubin 2.1 mg/dL (0.2-1.2) H 11/21/20 21:43 AST 50 U/L (5-34) H 11/21/20 21:43 ALT 51 U/L (8-55) 11/21/20 21:43 Alkaline Phosphatase 202 U/L (40-110) H 11/21/20 21:43 Serum Total Protein 8.3 g/dL (6.0-8.3) 11/21/20 21:43 Albumin 2.7 g/dL (3.5-5.0) L 11/21/20 21:43 Urine Ketones Negative mg/dL (Negative) 11/21/20 21:56 Urine Blood 1+ (Negative) A 11/21/20 21:56 Urine Nitrite Negative (Negative) 11/21/20 21:56 Ur Leukocyte Esterase 250 Orlin/uL (Negative) A 11/21/20 21:56 Urine RBC 7-10 HPF (0-3) A 11/21/20 21:56 Urine WBC Greater than 50 HPF (0-3) A 11/21/20 21:56 Ur Squamous Epith Cells 4-6 HPF (0-3) A 11/21/20 21:56 Urine Bacteria 4+ HPF (None Seen) A 11/21/20 21:56 Hospitalist H&P A/P - Plan Plan: This is a 55-year-old female patient for history of A. fib on Coumadin, heart failure, valvulopathy recently discharged after being managed for A. fib with RVR with heart failure presents again with worsening shortness of breath and palpitations. She also meets criteria for sepsis. Covid turned out negative Septic shock Patient is tachycardic, tachycardic, hypotensive, hypothermia elevated lactate This however could be be explained by A. fib with RVR with flash pulmonary edema and acute heart failure except for hypothermia. She however has UA suggestive of UTIpossible source Given her recent admission however will cover antibiotics for nowvancomycin and cefepime we will continue She is got about 3 L of fluids. Wean off Levophed Trend lactate Follow blood cultures Monitoring CCU transfer once of Levophed. Acute hypoxic respiratory failure Likely secondary to flash pulmonary edema from A. fib RVR with severe valvulopathy. Currently on nasal cannula Wean off oxygen Appreciate pulmonology input. Acute CHF exacerbation with preserved EF In the setting of valvulopathy with A. fib She may need diuresis but will hold for now. Appreciate cardiology input in a.m. PORFIRIO Likely secondary to acute heart failure Slight improvement with hydration and improvement in tachycardia We will monitor renal function Renal consult if deteriorates. Hyperkalemia Potassium was at 6.0 at presentation and now 5.9 Received dextrose, calcium, insulin Monitor potassium Renal consult if deteriorates. A. fib with RVR Currently out of RVR INR is supratherapeutic at 3.9 Resume metoprolol once blood pressures can tolerate Also received digoxin Start heparin drip for anticoagulation once subtherapeutic Appreciate cardiology input in a.m. Elevated D-dimer Unlikely due to coagulation due to supratherapeutic INR Possibly due to sepsis related Possible urinary tract infection Continue antibiotics as above Since she has elevated skin was also a repeat UA. Follow-up blood cultures. Severe mitral regurgitation Severe left atrial enlargement -Anemia stable monitor CBC DVT prophylaxishold for nowSCDINR supratherapeutic CODE STATUSfull code
[2020-11-21 23:54] LABS: SARS-CoV-2 NAA Rapid Test Not Detected (NotDetected)
[2020-11-22] MEDS ORDERED: Sodium Chloride 0.9% 1,000 ML IV SCH (00:15)
[2020-11-22 00:51] LABS: Troponin I 0.065 ng/mL (< 0.028)
[2020-11-22 01:02] LABS: Lactic Acid 6.6 mmol/L (0.5-2.2)
[2020-11-22 01:47] LABS: Sodium 132 mmol/L (136-145)
[2020-11-22 01:48] LABS: Anion Gap 24 mmol/L (10-20); Calc. Creatinine Clearance 17 mL/min (70-130); Calcium 8.5 mg/dL (7.8-10.44); Carbon Dioxide 14 mmol/L (22-29); Chloride 99 mmol/L (98-107); Glucose 110 mg/dL (70-105); Potassium 5.4 mmol/L (3.5-5.1)
[2020-11-22 01:59] LABS: BUN (Urea Nitrogen) 108 mg/dL (9.8-20.1)
[2020-11-22] MEDS ORDERED: Amiodarone 150 MG, Admixture Fee 1 EACH in Dextrose 5% in Water 100 ML IVPB SCH (02:30)
[2020-11-22] MEDS: Amiodarone 450 MG, Admixture Fee 1 EACH in Dextrose 5% in Water 250 ML IVPB SCH ×2 (03:09→10:17)
[2020-11-22 03:14] LABS: INR-International Normal Ratio 3.9; Prothrombin Time 38.8 sec (12.0-14.7)
[2020-11-22 03:27] LABS: Digoxin 1.71 ng/mL (0.8-2.0)
[2020-11-22 03:34] LABS: Bacteria/HPF 3+ HPF (None Seen); Bilirubin Negative (Negative); Blood, Urine 2+ (Negative); Clarity Extra Turbid (Clear); Glucose, Urine (Dipstick) Normal (Negative); Ketone, Urine Negative (Negative); Leukocyte 500 Leu/uL (Negative); Nitrite Negative (Negative); Protein, Urine (Dipstick) 200 mg/dL (Neg-Trace); Specific Gravity, Urine 1.019 (1.002-1.036); Squamous Epithelial 0-3 HPF (0-3); WBC/HPF Greater than 50 HPF (0-3); pH, Urine 5.5 (5.0-9.0)
[2020-11-22 03:35] LABS: Urine Culture Reflex Yes Yes
[2020-11-22 03:39] LABS: Band 9 % (5-11); Hemoglobin 9.2 g/dL (12.0-16.0); Hypochromia SLIGHT = 6-15 cells (100X) (0-5/hpf); Lymphocytes 16 % (21-51); MDiff Complete? YES; Mean Corpuscular Hemoglobin 26.2 pg (27.0-31.0); Mean Corpuscular Volume 87.3 fL (78.0-98.0); Mean Platelet Volume 9.1 fL (7.4-10.4); Monocytes 1 % (0-10); Neutrophil 74 % (42-75); Nucleated RBC 4 % (0); Platelet Count 316 thou/uL (130-400); Platelet Morphology Comment Appears Adequate; RBC Distribution Width 17.5 % (11.5-14.5); Red Blood Cell (RBC) Count 3.49 mill/uL (4.20-5.40); Toxic Granulation SLIGHT
[2020-11-22 03:39] LABS: Amphetamine Not Detected (NotDetected); Barbiturates Screen Not Detected (NotDetected); Benzodiazepine Screen Not Detected (NotDetected); Cocaine Metabolite Screen Not Detected (NotDetected); Medtox Control Line Valid? VALID (VALID); Medtox Reader # READER 1; Methadone Not Detected (NotDetected); Methamphetamine Not Detected (NotDetected); Opiate Screen Not Detected (NotDetected); Oxycodone Screen Not Detected (NotDetected); Phencyclidine (PCP) Not Detected (NotDetected); THC/Cannabinoid Screen Not Detected (NotDetected); Tricyclic Screen Not Detected (NotDetected)
[2020-11-22] MEDS ORDERED: Norepinephrine 8 MG/0.9% NS 250 ML IVPB SCH (05:00)
[2020-11-22] MEDS ORDERED: Enoxaparin Sodium 30 MG/0.3 ML SYRINGE SC SCH ×2 (09:00)
[2020-11-22] MEDS ORDERED: Sodium Bicarbonate 150 MEQ in Dextrose 5% in Water 1,000 ML IV SCH (11:15)
[2020-11-22 11:16] LABS: Anion Gap 24 mmol/L (10-20); BUN (Urea Nitrogen) 119 mg/dL (9.8-20.1); Calc. Creatinine Clearance 16 mL/min (70-130); Carbon Dioxide 16 mmol/L (22-29); Chloride 100 mmol/L (98-107); Potassium 5.8 mmol/L (3.5-5.1); Sodium 134 mmol/L (136-145)
[2020-11-22 11:17] LABS: Calcium 8.3 mg/dL (7.8-10.44); Glucose 93 mg/dL (70-105)
[2020-11-22 12:01] LABS: Creatinine, Urine 145.3 mg/dL (47-110)
--- NOTE | 2020-11-22 12:17 | CON ---
DATE OF CONSULTATION: HISTORY OF PRESENT ILLNESS: The patient is a very pleasant 55-year-old woman, who presented with increasing dyspnea. The patient has a history of atrial fibrillation and severe mitral regurgitation. She presented month ago with rapid atrial fibrillation. She subsequently was placed on Coumadin. The patient re- presented 2 weeks ago with recurrent atrial fibrillation. The patient also developed acute renal failure and was subsequently hydrated. The patient presents once again with increasing dyspnea. The patient was noted to be hypotensive and admitted for further evaluation. PAST MEDICAL HISTORY: 1. Atrial fibrillation. 2. Mitral regurgitation. 3. Hypertension. PAST SURGICAL HISTORY: . SOCIAL HISTORY: Nonsmoker. MEDICATIONS: 1. Metoprolol 50 b.i.d. 2. Aspirin 81 daily. 3. Coumadin 5 at bedtime. 4. Lasix 20 q.a.m. ALLERGIES: NO KNOWN DRUG ALLERGIES. FAMILY HISTORY: No strong family history of heart disease. PHYSICAL EXAMINATION: GENERAL: Ill-appearing woman with a blood pressure 103/69 on Levophed. NECK: Showed elevated JVP. LUNGS: Clear to auscultation. HEART: Regular rate and rhythm. Normal S1, S2 with 3/6 holosystolic murmur. ABDOMEN: Mildly distended. EXTREMITIES: Showed trace edema. LABORATORY DATA: White blood cell count 8.0, hemoglobin 9.2, hematocrit 30.5, platelets 316. Sodium 134, potassium 5.8, chloride 100, bicarbonate 24, BUN 119, creatinine 5.0. Troponin 0.07. EKG atrial fibrillation with a rapid ventricular response and a nonspecific ST-T wave abnormality. IMPRESSION: 1. Acute renal failure. 2. Atrial fibrillation with rapid ventricular response. 3. Severe mitral regurgitation. 4. Pulmonary hypertension. 5. Hypertension. This unfortunate woman presents with acute renal failure and rapid atrial fibrillation. The patient was treated with IV amiodarone. Her heart rate is now markedly lower than on admission. We will discontinue the amiodarone since she remains hypotensive. I would hold the patient's Coumadin at this time. We will follow this patient with you through her hospitalization. Critical care note, time 30 minutes. Job ID: [id number] MTDD
--- NOTE | 2020-11-22 15:48 | PDOC.HOSPP ---
- Subjective Encounter Date: 11/22/20 Encounter Time: 10:45 Subjective: Patient looked lethargic this morning. patient is on amiodarone; has been lately discontinued. Levophed is off. Minimal urine output. kayexalate -- had BM. Repeat potassium level still around 5.8. I placed a consult for Dr. HUMPHRIES and also notified him. Creatinine level slightly high at this morning at 5.06 and potassium 5.8. - Objective Vital Signs & Weight: Vital Signs (12 hours) Temp Pulse Ox 11/22/20 12:00 98.0 F 11/22/20 08:00 97.9 F 92 L 11/22/20 07:07 93 L 11/22/20 04:00 98.2 F Weight Weight 186 lb Most Recent Monitor Data Heart Rate from ECG 76 NIBP 110/69 NIBP BP-Mean 82 Respiration from ECG 18 SpO2 94 I&O: 11/21/20 11/22/20 11/23/20 06:59 06:59 06:59 Intake Total 925 116.7 Output Total 35 100 Balance 890 16.7 Result Diagrams: 11/22/20 02:30 11/22/20 10:37 Hospitalist ROS - Medication Medications: Active Medications Generic Name Dose Route Start Last Admin Trade Name Freq PRN Reason Stop Dose Admin Norepinephrine Bitartrate 250 mls @ 0 mls/hr 11/22/20 05:00 11/22/20 04:53 Levophed IVPB 250 mls INF SABINA Administration Protocol Titrate Sodium Bicarbonate 150 meq/ 1,150 mls @ 50 mls/hr 11/22/20 11:15 11/22/20 11:37 Dextrose/Water IV 1,150 mls INF SABINA Administration - Exam General Appearance: ill appearing Eye: PERRL ENT: normocephalic atraumatic Neck: supple Heart: RRR, normal peripheral pulses Respiratory: CTAB, normal chest expansion Gastrointestinal: soft, normal bowel sounds Neurological: no focal deficits Musculoskeletal: generalized weakness Psychiatric: somnolent, lethargic Hosp A/P - Plan Septic shock - UA suggestive of UTIpossible source Sepsis secondary to UTI -Urine cultures so far no growth -Cultures no growth -Vancomycin and cefepime Hypotension secondary to sepsis -Proved with trial of Levophed. Acute metabolic encephalopathy secondary to above -She appears to be back to baseline she is alert oriented x3 today. A. fib with RVR --Status post IV amiodarone infusion. --Daily INR, on Coumadin Acute hypoxic respiratory failure Likely secondary to flash pulmonary edema from A. fib RVR with severe valvulopathy. Severe mitral regurgitation; the atrial enlargement Pulmonary hypertension Acute CHF exacerbation with preserved EF -She was anticoagulated with Coumadin and her INR was slightly elevated. We will DC the Coumadin and restart when the INR is less than 3. PORFIRIO -Hyperkalemia -Kayexalate seems to be helping but still potassium on the high end in the setting of kidney injury. -Appreciate the renal input -Anemia stable Full code
--- NOTE | 2020-11-22 16:42 | CON ---
DATE OF CONSULTATION: 11/22/2020 HISTORY OF PRESENT ILLNESS: Fahad is a 55-year-old female. She has a history of congestive heart failure. She is admitted and says she feels 100% better than she felt yesterday. She had several days of increasing shortness of breath. She has a history of atrial fibrillation and mitral regurgitation. PAST MEDICAL HISTORY: Remarkable for; 1. Atrial fibrillation. 2. Severe mitral regurgitation. 3. Hypertension. 4. Chronic kidney disease. 5. History of . SOCIAL HISTORY: She is not a smoker or drinker. MEDICATIONS: She is on; 1. Metoprolol. 2. Aspirin. 3. Warfarin. 4. Lasix. ALLERGIES: SHE REPORTS NO DRUG ALLERGIES. FAMILY HISTORY: There is no family history of lung disease in early age. REVIEW OF SYSTEMS: Ten points otherwise negative. PHYSICAL EXAMINATION: VITAL SIGNS: Blood pressure 110/69, heart rate 76, respiratory rate is 18, oximetry is 94. GENERAL: She appears older than her age. HEENT: Her pupils are equal. Sclerae are anicteric. NECK: Supple. No lymphadenopathy. LUNGS: Remarkable for crackles in both lung bases. HEART: Irregular. She has a grade 2/6 systolic murmur. ABDOMEN: Soft and nontender. EXTREMITIES: Without clubbing, cyanosis, or edema. NEURO: Grossly nonfocal. LABORATORY DATA: White count 8, hemoglobin 9.2, platelets 316. Sodium 134, potassium 5.8, chloride 100, bicarb 16, BUN 119, creatinine 5.06. Chest x-ray shows pulmonary edema. IMPRESSION: Cardiogenic pulmonary edema on top of acute renal failure. Nephrology probably will need to be consulted since her creatinine has gone up instead of down with a neutral fluid balance. From a pulmonary standpoint, she is stable at this time. TIME SPENT: 70-minute consult, 50% of the time was spent on the unit coordinating care. Job ID: [id number] MTDD
[2020-11-22] MEDS ORDERED: Warfarin Sodium 5 MG TAB PO SCH ×2 (17:00)
--- NOTE | 2020-11-22 20:15 | CON ---
DATE OF CONSULTATION: 11/22/2020 SERVICE: Nephrology. REASON FOR CONSULTATION: Acute renal failure. HISTORY OF PRESENT ILLNESS: A 55-year-old female with known history of severe mitral valve regurgitation, congestive heart failure, hypertension, and paroxysmal atrial fibrillation, on anticoagulation with Coumadin, admitted with worsening shortness of breath. The patient was just discharged from this hospital on November 14 after admission for 5 days due to worsening shortness of breath, which was thought to be related to CHF and atrial fibrillation with rapid ventricular response. She reportedly developed palpitations in the last 2 days, which was associated with worsening shortness of breath and presented at the [facility] from where she was admitted to here. On presentation, the patient was noted to be tachycardic and hypotensive, and hypoxic, hence was resuscitated with IV fluid and oxygen supplementation. She was also noticed to have elevated creatinine of 6.0 as well as markedly elevated creatinine of 5.13, have Nephrology consult. The patient's condition has improved with IV fluid and commencement of amiodarone with better control of heart rate. She also reported improvement in shortness of breath. There was no history of fever, chest pain, dysuria, hematuria, nausea, or vomiting. She, however, admitted to leg edema. PAST MEDICAL HISTORY: 1. Paroxysmal atrial fibrillation. 2. Severe mitral valve regurgitation. 3. Congestive heart failure. 4. Hypertension. PAST SURGICAL HISTORY: section. FAMILY HISTORY: Reviewed, but noncontributory. SOCIAL HISTORY: The patient lives with family. Admitted to everyday smoking, but denied recreational drug use. Reported occasional alcohol use. ALLERGIES: NO KNOWN DRUG ALLERGIES REPORTED. MEDICATIONS: Prior to hospital medications are as follows: 1. Lasix 20 mg p.o. daily. 2. Digoxin 0.125 mg p.o. daily. 3. Coumadin 5 mg daily. 4. Aspirin 81 mg p.o. daily. 5. Metoprolol 25 mg p.o. b.i.d. Current hospital medications are as follow: 1. Cefepime 2 g daily. 2. No epinephrine p.r.n. as needed for hypotension. 3. Sodium chloride at 75 mL/hour. 4. Vancomycin as per Pharmacy. REVIEW OF SYSTEMS: A 12-point review of system performed was negative other than pertinent positives and negatives included in the history of present illness. PHYSICAL EXAMINATION: VITAL SIGNS: Temperature 98.2, pulse 83, respiratory rate 15, SpO2 is 95 on 2 L nasal cannula, blood pressure is 102/66. GENERAL: Middle-age female, in mild distress. Anicteric and acyanotic. HEENT: Normocephalic, atraumatic. Oral mucosa is moist. NECK: Supple and symmetrical. JVD noted. CARDIOVASCULAR: Irregular rhythm and rate with normal heart sounds 1 and 2. Systolic murmur noted. RESPIRATORY: Fair air entry bilaterally with bibasilar crackles posteriorly. Work of breathing is mildly increased. GI: Full, soft, nontender, nondistended with normal bowel sounds. UROGENITAL: Stanley catheter is in place draining some urine. EXTREMITIES: Trace to mild bilateral leg edema noted. 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 Cranial nerves 2 through 12 are grossly intact. The patient moves all extremities. DIAGNOSTIC DATA: CBC earlier today showed WBC of 8.0, hemoglobin of 9.2, MCV of 87.3, platelets of 316. Coagulation profile earlier today showed PT 38.8 and INR 3.9. Chemistry earlier today showed sodium 134, potassium 5.8, chloride 100, CO2 of 16, BUN 119, creatinine 5.06. On presentation to the hospital, yesterday's sodium was 133, potassium 5.9, chloride 98, CO2 of 12, BUN 117, creatinine 4.84, glucose 96, calcium 8.4, total bilirubin 2.1, AST 50, ALT 51, alkaline phosphatase 202, total protein 8.3, albumin 2.7. Lactic acid on presentation is 8.4. Of note, on November 14, the patient had creatinine of 1.43. Baseline creatinine seems to be 1.1 to 1.4. Urinalysis earlier today showed extra turbid urine with pH of 5.5, specific gravity of 1.019, urine protein to 200 mg/dL. Normal glucose, ketone, nitrite, and bilirubin. Blood is positive as well as leukocyte esterase. Microscopy showed 11 to 20 RBC and greater than 50 WBC, however, hyaline cast was greater than 50. Urine drug screen was unremarkable. ASSESSMENT: 1. Acute renal failure: This most likely due to hemodynamic factors related to volume depletion as well as acute cardiac decompensation. Superimposed acute tubular necrosis cannot be ruled out. 2. Hyperkalemia: Most likely due to potassium shift related to metabolic acidosis as well as acute kidney injury. 3. Metabolic acidosis. 4. Hypotension/circulatory shock: Due to volume depletion and acute cardiac decompensation related to atrial fibrillation. 5. Severe mitral regurgitation. 6. Paroxysmal atrial fibrillation. 7. Acute respiratory failure due to cardiac decompensation. PLAN: 1. We will substitute normal saline with bicarb based IV fluid and rinse at a lower rate to prevent fluid overload. 2. We will also recheck BMP to ascertain improvement otherwise of hyperkalemia. The patient also has received Kayexalate. 3. We will also get urine electrolytes and urine protein creatinine ratio. 4. Avoid nephrotoxic agents. 5. Further treatment to follow depending on hospital course and review of other diagnostic tests. Job ID: [id number]
[2020-11-22 20:31] LABS: Anion Gap 20 mmol/L (10-20); BUN (Urea Nitrogen) 119 mg/dL (9.8-20.1); Calc. Creatinine Clearance 17 mL/min (70-130); Carbon Dioxide 18 mmol/L (22-29); Chloride 98 mmol/L (98-107); Glucose 100 mg/dL (70-105); Potassium 5.2 mmol/L (3.5-5.1); Sodium 131 mmol/L (136-145)
[2020-11-22] MEDS: Cefepime 2 GM in Sodium Chloride 0.9% 100 ML IVPB SCH (21:06)
[2020-11-22] MEDS: Sodium Bicarbonate Tab 325 MG TAB PO SCH (21:06)
[2020-11-22 22:35] LABS: Vancomycin, Random 12.6 ug/mL (See Comment)
[2020-11-22] MEDS ORDERED: Vancomycin 1 GM in Premix Bag 1 BAG IVPB SCH (23:00)
[2020-11-22] MEDS ORDERED: Vancomycin HCl 750 MG in Sodium Chloride 0.9% 250 ML 250 ML IVPB SCH (23:15)
[2020-11-23 04:53] LABS: PTT 41.8 sec (22.9-36.1)
[2020-11-23 04:54] LABS: INR-International Normal Ratio 3.9; Prothrombin Time 39.4 sec (12.0-14.7)
[2020-11-23 05:00] LABS: Anion Gap 19 mmol/L (10-20); BUN (Urea Nitrogen) 118 mg/dL (9.8-20.1); Calc. Creatinine Clearance 18 mL/min (70-130); Calcium 7.7 mg/dL (7.8-10.44); Carbon Dioxide 20 mmol/L (22-29); Chloride 97 mmol/L (98-107); Glucose 124 mg/dL (70-105); Potassium 4.7 mmol/L (3.5-5.1); Sodium 131 mmol/L (136-145)
--- NOTE | 2020-11-23 07:51 | RAD ---
Chest AP view INDICATION: 55-year-old female with shortness of breath COMPARISON: November 21, 2020 FINDINGS: Lungs: There is worsening bilateral perihilar groundglass and interstitial opacities suspicious for edema. Cardiac silhouette: There is stable moderate cardiomegaly. Pulmonary vasculature: There is worsening pulmonary vascular congestion. Pleural spaces: There are new small bilateral pleural effusions Upper abdomen: No abnormality seen. Osseous structures: No acute osseous abnormality. Additional findings: None. IMPRESSION: Worsening CHF
[2020-11-23] MEDS: Sodium Bicarbonate Tab 325 MG TAB PO SCH ×2 (09:21→22:26)
[2020-11-23] MEDS: Sodium Bicarbonate 150 MEQ in Dextrose 5% in Water 1,000 ML IV SCH (09:23)
[2020-11-23 10:41] LABS: Lactic Acid 1.4 mmol/L (0.5-2.2)
[2020-11-23] MEDS ORDERED: Fluconazole 100 MG TAB PO SCH (11:45)
--- NOTE | 2020-11-23 12:55 | PDOC.HOSPP ---
- Subjective Encounter Date: 11/23/20 Encounter Time: 10:45 Subjective: Patient seen this morning and she appears well she is able to have some p.o. intake. She is still on a bicarb drip. Will monitor her urine output but she does not need to have Stanley. She is off the pressor. Her INR is still 3.9 so we are holding the Coumadin until INR less than 3. Patient also noted to have some vaginal white discharge. I am empirically treating her with the p.o. fluconazole. With the fluconazole INR expected to be trending up - so not giving Coumadin until INR is less than 3. If critical care is okay will plan to transfer her to telemetry bed - Objective Vital Signs & Weight: Vital Signs (12 hours) Temp Pulse Ox 11/23/20 12:00 97.5 F L 11/23/20 08:00 98.5 F 98 11/23/20 04:00 97.9 F Weight Weight 192 lb 10.944 oz Most Recent Monitor Data Heart Rate from ECG 98 NIBP 85/67 NIBP BP-Mean 73 Respiration from ECG 19 SpO2 94 I&O: 11/22/20 11/23/20 11/24/20 06:59 06:59 06:59 Intake Total 925 2167.3 200 Output Total 35 740 410 Balance 890 1427.3 -210 Result Diagrams: 11/22/20 02:30 11/23/20 03:50 Hospitalist ROS - Medication Medications: Active Medications Generic Name Dose Route Start Last Admin Trade Name Freq PRN Reason Stop Dose Admin Fluconazole 100 mg 11/23/20 11:45 11/23/20 12:34 Fluconazole 100 Mg Tab PO 11/23/20 14:00 100 mg NOW SABINA Administration Cefepime HCl 2 gm/ Sodium 100 mls @ 200 mls/hr 11/22/20 22:00 11/22/20 21:06 Chloride IVPB 100 mls Q24HR@2200 SABINA Administration Norepinephrine Bitartrate 250 mls @ 0 mls/hr 11/22/20 05:00 11/22/20 04:53 Levophed IVPB 250 mls INF SABINA Administration Protocol Titrate Sodium Bicarbonate 150 meq/ 1,150 mls @ 80 mls/hr 11/23/20 06:43 11/23/20 09:23 Dextrose/Water IV 1,150 mls INF SABINA Administration Sodium Bicarbonate 650 mg 11/22/20 21:00 11/23/20 09:21 Sodium Bicarbonate Tab 325 Mg Tab PO 650 mg BID SABINA Administration - Exam General Appearance: NAD, awake alert Eye: PERRL ENT: normocephalic atraumatic Neck: supple Heart: RRR Respiratory: CTAB, normal chest expansion Gastrointestinal: soft, normal bowel sounds Neurological: cranial nerve grossly intact, no focal deficits Musculoskeletal: generalized weakness Psychiatric: normal affect, normal behavior, A&O x 3 Hosp A/P - Plan Septic shock - UA suggestive of UTIpossible source Sepsis secondary to UTI -Urine cultures so far no growth -Cultures no growth -Vancomycin and cefepime Hypotension secondary to sepsis -Proved with trial of Levophed. Acute metabolic encephalopathy secondary to above -She appears to be back to baseline she is alert oriented x3 today. A. fib with RVR --Status post IV amiodarone infusion. --Daily INR, on Coumadin Acute hypoxic respiratory failure Likely secondary to flash pulmonary edema from A. fib RVR with severe valvulopathy. Severe mitral regurgitation; the atrial enlargement Pulmonary hypertension Acute CHF exacerbation with preserved EF -She was anticoagulated with Coumadin and her INR was slightly elevated. We will DC the Coumadin and restart when the INR is less than 3. PORFIRIO -Hyperkalemia -Kayexalate seems to be helping but still potassium on the high end in the setting of kidney injury. -Appreciate the renal input -Anemia stable Full code Will monitor her urine output but she does not need to have Stanley. She is off the pressor. Her INR is still 3.9 so we are holding the Coumadin until INR less than 3. Patient also noted to have some vaginal white discharge. I am empirically treating her with the p.o. fluconazole. With the fluconazole INR expected to be trending up - so not giving Coumadin until INR is less than 3. DC the Stanley. If critical care is okay will plan to transfer her to telemetry bed
--- NOTE | 2020-11-23 13:47 | PRG ---
DATE OF SERVICE: 11/23/2020 SUBJECTIVE: Marilu Vásquez is afebrile. She is on 2 L, oximetry is 98, blood pressure is fluctuating between mid 80s to 100, respiratory rates in the teens. Lungs are clear. Heart, regular rhythm. Abdomen is soft extremities without edema. Again, she appears much older than her age. Her chest x-ray still shows pulmonary edema. This is mild and the film is slightly underpenetrated. LABORATORY DATA: White count is 8, hemoglobin 9.2 platelets 316. Creatinine is down from 5 to 4.7. IMPRESSION: 1. Congestive heart failure. 2. Cardiogenic pulmonary edema. 3. Severe mitral regurgitation. 4. Atrial fibrillation. 5. History of hypertension. 6. Acute on chronic kidney disease. Her intake and output are positive [id number]. Her volume status will have to be watched very closely. She is at risk for getting worse with her marginal renal function and her cardiomyopathy. Job ID: [id number]
--- NOTE | 2020-11-23 15:01 | PDOC.NEPPN ---
- Subjective Encounter Date: 11/23/20 Subjective: Seen and examined. Feeling better. Denied nausea, vomiting or diarrhea. SOB and edema have improved. - Objective Vital Signs & Weight: Vital Signs (12 hours) Temp Pulse Ox 11/23/20 12:00 97.5 F L 97 11/23/20 08:00 98.5 F 98 11/23/20 04:00 97.9 F Weight Weight 192 lb 10.944 oz Most Recent Monitor Data Heart Rate from ECG 86 NIBP 107/73 NIBP BP-Mean 84 Respiration from ECG 16 SpO2 95 I&O: 11/22/20 11/23/20 11/24/20 06:59 06:59 06:59 Intake Total 925 2167.3 300 Output Total 35 740 410 Balance 890 1427.3 -110 Result Diagrams: 11/22/20 02:30 11/23/20 03:50 Nephrology ROS - Medication Medications: Active Medications Generic Name Dose Route Start Last Admin Trade Name Freq PRN Reason Stop Dose Admin Cefepime HCl 2 gm/ Sodium 100 mls @ 200 mls/hr 11/22/20 22:00 11/22/20 21:06 Chloride IVPB 100 mls Q24HR@2200 SABINA Administration Norepinephrine Bitartrate 250 mls @ 0 mls/hr 11/22/20 05:00 11/22/20 04:53 Levophed IVPB 250 mls INF SABINA Administration Protocol Titrate Sodium Bicarbonate 150 meq/ 1,150 mls @ 80 mls/hr 11/23/20 06:43 11/23/20 09:23 Dextrose/Water IV 1,150 mls INF SABINA Administration Sodium Bicarbonate 650 mg 11/22/20 21:00 11/23/20 09:21 Sodium Bicarbonate Tab 325 Mg Tab PO 650 mg BID SABINA Administration - Exam General Appearance: awake alert Eye: anicteric sclera ENT: normocephalic atraumatic, moist mucosa Neck: symmetric, JVD Respiratory: no ronchi, no tachypnea Respiratory - other findings: fair air entry with few left base crackles posteriorly. Cardiovascular: irregular Gastrointestinal: soft, non-tender, non-distended, normal bowel sounds Extremities: no edema Neurological: CN's grossly intact, no focal deficits Musculoskeletal: generalized weakness PSYCH: A&O x 3 Nephrology Results - Labs Result Diagrams: 11/22/20 02:30 11/23/20 03:50 Lab results: WBC 8.0 thou/uL (4.8-10.8) 11/22/20 02:30 Hgb 9.2 g/dL (12.0-16.0) L 11/22/20 02:30 Hct 30.5 % (36.0-47.0) L 11/22/20 02:30 MCV 87.3 fL (78.0-98.0) 11/22/20 02:30 Plt Count 316 thou/uL (130-400) 11/22/20 02:30 Neutrophils % 80.0 % (42.0-75.0) H 11/21/20 21:43 Band Neuts % (Manual) 9 % (5-11) 11/22/20 02:30 ABG pH 7.31 (7.35-7.45) L 11/21/20 22:27 ABG pCO2 28.6 mmHg (35.0-45.0) L 11/21/20 22:27 ABG pO2 208.1 mmHg (80.0-100.0) H 11/21/20 22:27 Sodium 131 mmol/L (136-145) L 11/23/20 03:50 Potassium 4.7 mmol/L (3.5-5.1) 11/23/20 03:50 Chloride 97 mmol/L (98-107) L 11/23/20 03:50 Carbon Dioxide 20 mmol/L (22-29) L 11/23/20 03:50 BUN 118 mg/dL (9.8-20.1) H 11/23/20 03:50 Creatinine 4.72 mg/dL (0.6-1.1) H 11/23/20 03:50 Glucose 124 mg/dL (70-105) H 11/23/20 03:50 Lactic Acid 1.4 mmol/L (0.5-2.2) 11/23/20 10:07 Calcium 7.7 mg/dL (7.8-10.44) L 11/23/20 03:50 Total Bilirubin 2.1 mg/dL (0.2-1.2) H 11/21/20 21:43 AST 50 U/L (5-34) H 11/21/20 21:43 ALT 51 U/L (8-55) 11/21/20 21:43 Alkaline Phosphatase 202 U/L (40-110) H 11/21/20 21:43 Troponin I 0.070 ng/mL (< 0.028) H 11/22/20 02:30 Serum Total Protein 8.3 g/dL (6.0-8.3) 11/21/20 21:43 Albumin 2.7 g/dL (3.5-5.0) L 11/21/20 21:43 Urine Ketones Negative mg/dL (Negative) 11/22/20 03:10 Urine Blood 2+ (Negative) A 11/22/20 03:10 Urine Nitrite Negative (Negative) 11/22/20 03:10 Ur Leukocyte Esterase 500 Orlin/uL (Negative) A 11/22/20 03:10 Urine RBC 11-20 HPF (0-3) A 11/22/20 03:10 Urine WBC Greater than 50 HPF (0-3) A 11/22/20 03:10 Ur Squamous Epith Cells 0-3 HPF (0-3) 11/22/20 03:10 Urine Bacteria 3+ HPF (None Seen) A 11/22/20 03:10 Sodium 131 mmol/L (136-145) L 11/23/20 03:50 Potassium 4.7 mmol/L (3.5-5.1) 11/23/20 03:50 Chloride 97 mmol/L (98-107) L 11/23/20 03:50 Carbon Dioxide 20 mmol/L (22-29) L 11/23/20 03:50 Anion Gap 19 mmol/L (10-20) 11/23/20 03:50 BUN 118 mg/dL (9.8-20.1) H 11/23/20 03:50 Creatinine 4.72 mg/dL (0.6-1.1) H 11/23/20 03:50 Glucose 124 mg/dL (70-105) H 11/23/20 03:50 Calcium 7.7 mg/dL (7.8-10.44) L 11/23/20 03:50 Albumin 2.7 g/dL (3.5-5.0) L 11/21/20 21:43 Nephrology AP PN - Plan ASSESSMENT: Acute renal failure: Due to hemodynamic factors related to volume depletion as well as acute cardiac decompensation due tp PAF. Creat is begining to trend down but BUN is still significantly elevated. Hyperkalemia: Most likely due to potassium shift related to metabolic acidosis as well as acute kidney injury. Resolved Metabolic acidosis. Hypotension/circulatory shock: Due to volume depletion and acute cardiac decompensation related to atrial fibrillation. Improved with IVF and Pressors. Off pressors. Severe mitral regurgitation. Paroxysmal atrial fibrillation. Acute respiratory failure due to cardiac decompensation. Hypocalcemia: ? Vitamin D deficiency Plan Increase sodium bicarbonate rate to 80 cc/hr. Monitor vitals closely to avoid fluid overload. Get Vitamin D level and replete if indicated. Monitor intake and output and renal function. Get renal US
--- NOTE | 2020-11-23 18:42 | ULT ---
RENAL ULTRASOUND: 11/23/20 INDICATION: Acute renal failure. COMPARISON: None. FINDINGS: There is a small amount of ascites and right sided pleural effusion incidentally noted. The right kidney measures 12.0 x 4.6 x 5 cm. The left kidney measures 10.8 x 5.2 x 4.6 cm. Right renata l cortical thickness is 1.3 cm. The left renal cortical thickness is 1.6 cm. There is a prominent col umn of Gus involving both kidneys. No hydronephrosis is evident. The visualized bladder has a prev oid bladder volume of 140 mL. No intraluminal mass is grossly evident. IMPRESSION: 1. No focal renal lesion or hydronephrosis. 2. Mild ascites. 3. Right pleural effusion. POS: BH
[2020-11-23] MEDS: Cefepime 2 GM in Sodium Chloride 0.9% 100 ML IVPB SCH (22:00)
[2020-11-24 00:48] LABS: Vancomycin, Trough 15.1 ug/mL
[2020-11-24] MEDS ORDERED: Vancomycin HCl 500 MG in Sodium Chloride 0.9% 100 ML IVPB SCH (01:30)
[2020-11-24] MEDS ORDERED: Vancomycin 1 GM in Premix Bag 1 BAG IVPB SCH (02:00)
[2020-11-24] MEDS: Sodium Bicarbonate 150 MEQ in Dextrose 5% in Water 1,000 ML IV SCH ×2 (02:41→17:57)
[2020-11-24 07:03] LABS: INR-International Normal Ratio 2.5; PTT 37.3 sec (22.9-36.1); Prothrombin Time 27.8 sec (12.0-14.7)
[2020-11-24 07:14] LABS: Anion Gap 15 mmol/L (10-20); BUN (Urea Nitrogen) 93 mg/dL (9.8-20.1); Calc. Creatinine Clearance 32 mL/min (70-130); Calcium 7.4 mg/dL (7.8-10.44); Carbon Dioxide 28 mmol/L (22-29); Chloride 97 mmol/L (98-107); Glucose 120 mg/dL (70-105); Potassium 3.6 mmol/L (3.5-5.1); Sodium 136 mmol/L (136-145)
[2020-11-24 07:18] LABS: Hemoglobin 8.3 g/dL (12.0-16.0); Mean Corpuscular HGB CONC 32.1 g/dL (32.0-36.0); Mean Corpuscular Hemoglobin 27.7 pg (27.0-31.0); Mean Corpuscular Volume 86.4 fL (78.0-98.0); RBC Distribution Width 17.2 % (11.5-14.5)
[2020-11-24 07:43] LABS: Mean Platelet Volume 8.8 fL (7.4-10.4); Platelet Count 221 thou/uL (130-400); White Blood Cell (WBC) Count 5.4 thou/uL (4.8-10.8)
[2020-11-24 07:44] LABS: Anisocytosis SLIGHT = 6-15 cells (100X) (0-5/hpf); Band 1 % (5-11); Eosinophils 4 % (0-10); Lymphocytes 8 % (21-51); MDiff Complete? YES; Monocytes 9 % (0-10); Neutrophil 77 % (42-75); Nucleated RBC 3 % (0); Platelet Morphology Comment Appears Adequate
[2020-11-24] MEDS ORDERED: Ergocalciferol 1.25 MG(50,000 UNITS) CAP PO SCH (09:00)
[2020-11-24] MEDS ORDERED: Digoxin 0.25 MG TAB PO SCH (09:00)
[2020-11-24] MEDS: Sodium Bicarbonate Tab 325 MG TAB PO SCH ×2 (09:05→22:16)
[2020-11-24] MEDS: Cholecalciferol 1,000 UNITS (25 MCG) TAB PO SCH (09:05)
[2020-11-24] MEDS: Fluconazole 100 MG TAB PO SCH (09:06)
[2020-11-24] MEDS: Furosemide 20 MG TAB PO SCH (09:06)
--- NOTE | 2020-11-24 12:52 | PDOC.NEPPN ---
- Subjective Encounter Date: 11/24/20 Subjective: Seen in follow up for ARF. Feeling better. Off oxygen and pressors. Denied nausea, vomiting or diarrhea. Complaining of weakness. No fever. - Objective Vital Signs & Weight: Vital Signs (12 hours) Temp Pulse Resp BP Pulse Ox 11/24/20 12:10 98.0 F 79 18 115/67 95 11/24/20 07:35 97.9 F 76 18 113/62 95 11/24/20 03:03 97.5 F L 88 20 119/65 93 L Weight Weight 196 lb 8 oz Most Recent Monitor Data Heart Rate from ECG 72 NIBP 95/68 NIBP BP-Mean 77 Respiration from ECG 15 SpO2 100 I&O: 11/23/20 11/24/20 11/25/20 06:59 06:59 06:59 Intake Total 2167.3 1760 Output Total 740 1010 Balance 1427.3 750 Result Diagrams: 11/24/20 06:35 11/24/20 06:35 Nephrology ROS - Medication Medications: Active Medications Generic Name Dose Route Start Last Admin Trade Name Freq PRN Reason Stop Dose Admin Cholecalciferol 2,000 units 11/24/20 09:00 11/24/20 09:05 Cholecalciferol 1,000 Units (25 Mcg) Tab PO 2,000 units DAILY SABINA Administration Ergocalciferol 1.25 mg 11/24/20 09:00 11/24/20 09:05 Ergocalciferol 1.25 Mg(50,000 Units) Cap PO 1.25 mg Q7DAYS SABINA Administration Fluconazole 100 mg 11/24/20 09:00 11/24/20 09:06 Fluconazole 100 Mg Tab PO 100 mg DAILY SABINA Administration Furosemide 20 mg 11/24/20 09:00 11/24/20 09:06 Furosemide 20 Mg Tab PO 20 mg DAILY SABINA Administration Cefepime HCl 2 gm/ Sodium 100 mls @ 200 mls/hr 11/22/20 22:00 11/23/20 22:00 Chloride IVPB 100 mls Q24HR@2200 SABINA Administration Norepinephrine Bitartrate 250 mls @ 0 mls/hr 11/22/20 05:00 11/22/20 04:53 Levophed IVPB 250 mls INF SABINA Administration Protocol Titrate Sodium Bicarbonate 150 meq/ 1,150 mls @ 80 mls/hr 11/23/20 06:43 11/24/20 02:41 Dextrose/Water IV 1,150 mls INF SABINA Administration Vancomycin HCl 1 gm/ Device 200 mls @ 200 mls/hr 11/24/20 02:00 11/24/20 02:30 IVPB 200 mls Q2DAYS@0200 SABINA Administration Sodium Bicarbonate 650 mg 11/22/20 21:00 11/24/20 09:05 Sodium Bicarbonate Tab 325 Mg Tab PO 650 mg BID SABINA Administration Sodium Chloride 10 ml 11/24/20 09:00 11/24/20 09:07 Flush - Normal Saline 10 Ml Syringe IVF 10 ml Q12HR SABINA Administration - Exam General Appearance: awake alert Eye: anicteric sclera ENT: moist mucosa Neck: supple, symmetric Respiratory: no wheezes, no ronchi, no tachypnea Respiratory - other findings: Decreased air entry at both bases with some transmitted sound. Cardiovascular: irregular, murmur present Gastrointestinal: soft, non-tender, non-distended, normal bowel sounds Extremities: 1+ LE edema Neurological: CN's grossly intact, no focal deficits PSYCH: A&O x 3 Nephrology Results - Labs Result Diagrams: 11/24/20 06:35 11/24/20 06:35 Lab results: WBC 5.4 thou/uL (4.8-10.8) 11/24/20 06:35 Hgb 8.3 g/dL (12.0-16.0) L 11/24/20 06:35 Hct 25.9 % (36.0-47.0) L 11/24/20 06:35 MCV 86.4 fL (78.0-98.0) 11/24/20 06:35 Plt Count 221 thou/uL (130-400) 11/24/20 06:35 Neutrophils % 80.0 % (42.0-75.0) H 11/21/20 21:43 Band Neuts % (Manual) 1 % (5-11) L 11/24/20 06:35 ABG pH 7.31 (7.35-7.45) L 11/21/20 22:27 ABG pCO2 28.6 mmHg (35.0-45.0) L 11/21/20 22:27 ABG pO2 208.1 mmHg (80.0-100.0) H 11/21/20 22:27 Sodium 136 mmol/L (136-145) 11/24/20 06:35 Potassium 3.6 mmol/L (3.5-5.1) 11/24/20 06:35 Chloride 97 mmol/L (98-107) L 11/24/20 06:35 Carbon Dioxide 28 mmol/L (22-29) 11/24/20 06:35 BUN 93 mg/dL (9.8-20.1) H 11/24/20 06:35 Creatinine 2.77 mg/dL (0.6-1.1) H 11/24/20 06:35 Glucose 120 mg/dL (70-105) H 11/24/20 06:35 Lactic Acid 1.4 mmol/L (0.5-2.2) 11/23/20 10:07 Calcium 7.4 mg/dL (7.8-10.44) L 11/24/20 06:35 Total Bilirubin 2.1 mg/dL (0.2-1.2) H 11/21/20 21:43 AST 50 U/L (5-34) H 11/21/20 21:43 ALT 51 U/L (8-55) 11/21/20 21:43 Alkaline Phosphatase 202 U/L (40-110) H 11/21/20 21:43 Troponin I 0.070 ng/mL (< 0.028) H 11/22/20 02:30 Serum Total Protein 8.3 g/dL (6.0-8.3) 11/21/20 21:43 Albumin 2.7 g/dL (3.5-5.0) L 11/21/20 21:43 Urine Ketones Negative mg/dL (Negative) 11/22/20 03:10 Urine Blood 2+ (Negative) A 11/22/20 03:10 Urine Nitrite Negative (Negative) 11/22/20 03:10 Ur Leukocyte Esterase 500 Orlin/uL (Negative) A 11/22/20 03:10 Urine RBC 11-20 HPF (0-3) A 11/22/20 03:10 Urine WBC Greater than 50 HPF (0-3) A 11/22/20 03:10 Ur Squamous Epith Cells 0-3 HPF (0-3) 11/22/20 03:10 Urine Bacteria 3+ HPF (None Seen) A 11/22/20 03:10 Sodium 136 mmol/L (136-145) 11/24/20 06:35 Potassium 3.6 mmol/L (3.5-5.1) 11/24/20 06:35 Chloride 97 mmol/L (98-107) L 11/24/20 06:35 Carbon Dioxide 28 mmol/L (22-29) 11/24/20 06:35 Anion Gap 15 mmol/L (10-20) 11/24/20 06:35 BUN 93 mg/dL (9.8-20.1) H 11/24/20 06:35 Creatinine 2.77 mg/dL (0.6-1.1) H 11/24/20 06:35 Glucose 120 mg/dL (70-105) H 11/24/20 06:35 Calcium 7.4 mg/dL (7.8-10.44) L 11/24/20 06:35 Albumin 2.7 g/dL (3.5-5.0) L 11/21/20 21:43 Nephrology AP PN - Plan ASSESSMENT: Acute renal failure: Due to hemodynamic factors related to volume depletion as well as acute cardiac decompensation due tp PAF. Creat is begining to trend down but BUN is still significantly elevated. Hyperkalemia: Most likely due to potassium shift related to metabolic acidosis as well as acute kidney injury. Resolved Metabolic acidosis. Circulatory shock: Etiology is not very clear. Most likely due to volume depletion and acute cardiac decompensation related to atrial fibrillation. S epsis is a concern but patient had no SIRS at presentation. Improved with IVF and Pressors. Off pressors. Severe mitral regurgitation. Atrial fibrillation. Acute respiratory failure due to cardiac decompensation. Off oxygen Hypocalcemia Vitamin D deficiency Proteinuria Plan Continue sodium bicarbonate infusion Start vitamin D and calcium supplementation. Monitor vitals closely to avoid fluid overload. Monitor intake and output and renal function.
--- NOTE | 2020-11-24 14:05 | PDOC.HOSPP ---
- Subjective Encounter Date: 11/24/20 Encounter Time: 13:30 Subjective: Patient seen and she appears well. Renal ultrasound unremarkable. She 7 vitamin D deficiency. She is positive intake about 750 mm - Objective Vital Signs & Weight: Vital Signs (12 hours) Temp Pulse Resp BP Pulse Ox 11/24/20 12:10 98.0 F 79 18 115/67 95 11/24/20 07:35 97.9 F 76 18 113/62 95 11/24/20 03:03 97.5 F L 88 20 119/65 93 L Weight Weight 196 lb 8 oz Most Recent Monitor Data Heart Rate from ECG 72 NIBP 95/68 NIBP BP-Mean 77 Respiration from ECG 15 SpO2 100 I&O: 11/23/20 11/24/20 11/25/20 06:59 06:59 06:59 Intake Total 2167.3 1760 Output Total 740 1010 Balance 1427.3 750 Result Diagrams: 11/24/20 06:35 11/24/20 06:35 Hospitalist ROS - Medication Medications: Active Medications Generic Name Dose Route Start Last Admin Trade Name Doroteo PRN Reason Stop Dose Admin Cholecalciferol 2,000 units 11/24/20 09:00 11/24/20 09:05 Cholecalciferol 1,000 Units (25 Mcg) Tab PO 2,000 units DAILY SABINA Administration Ergocalciferol 1.25 mg 11/24/20 09:00 11/24/20 09:05 Ergocalciferol 1.25 Mg(50,000 Units) Cap PO 1.25 mg Q7DAYS SABINA Administration Fluconazole 100 mg 11/24/20 09:00 11/24/20 09:06 Fluconazole 100 Mg Tab PO 100 mg DAILY SABINA Administration Furosemide 20 mg 11/24/20 09:00 11/24/20 09:06 Furosemide 20 Mg Tab PO 20 mg DAILY SABINA Administration Cefepime HCl 2 gm/ Sodium 100 mls @ 200 mls/hr 11/22/20 22:00 11/23/20 22:00 Chloride IVPB 100 mls Q24HR@2200 SABINA Administration Norepinephrine Bitartrate 250 mls @ 0 mls/hr 11/22/20 05:00 11/22/20 04:53 Levophed IVPB 250 mls INF SABINA Administration Protocol Titrate Sodium Bicarbonate 150 meq/ 1,150 mls @ 80 mls/hr 11/23/20 06:43 11/24/20 02:41 Dextrose/Water IV 1,150 mls INF SABINA Administration Vancomycin HCl 1 gm/ Device 200 mls @ 200 mls/hr 11/24/20 02:00 11/24/20 02 :30 IVPB 200 mls Q2DAYS@0200 SABINA Administration Sodium Bicarbonate 650 mg 11/22/20 21:00 11/24/20 09:05 Sodium Bicarbonate Tab 325 Mg Tab PO 650 mg BID SABINA Administration Sodium Chloride 10 ml 11/24/20 09:00 11/24/20 09:07 Flush - Normal Saline 10 Ml Syringe IVF 10 ml Q12HR SABINA Administration - Exam General Appearance: NAD, awake alert Eye: PERRL ENT: normocephalic atraumatic Neck: supple Heart: RRR Respiratory: CTAB, normal chest expansion Gastrointestinal: soft, normal bowel sounds Neurological: cranial nerve grossly intact, no focal deficits Musculoskeletal: generalized weakness Psychiatric: normal affect, normal behavior, A&O x 3 Hosp A/P - Plan Septic shock - UA suggestive of UTIpossible source Sepsis secondary to UTI -Urine cultures so far no growth -Cultures no growth -Vancomycin and cefepime Hypotension secondary to sepsis -Proved with trial of Levophed. Acute metabolic encephalopathy secondary to above -She appears to be back to baseline she is alert oriented x3 today. A. fib with RVR --Status post IV amiodarone infusion. --Daily INR, on Coumadin Acute hypoxic respiratory failure Likely secondary to flash pulmonary edema from A. fib RVR with severe valvulopathy. Severe mitral regurgitation; the atrial enlargement Pulmonary hypertension Acute CHF exacerbation with preserved EF -She was anticoagulated with Coumadin and her INR was slightly elevated. We will DC the Coumadin and restart when the INR is less than 3. PORFIRIO -Hyperkalemia -Kayexalate seems to be helping but still potassium on the high end in the setting of kidney injury. -Appreciate the renal input -Anemia stable Full code Will monitor her urine output but she does not need to have Stanley. She is off the pressor. Her INR is still 3.9 so we are holding the Coumadin until INR less than 3. Patient also noted to have some vaginal white discharge. I am empirically treating her with the p.o. fluconazole. With the fluconazole INR expected to be trending up - so not giving Coumadin until INR is less than 3. DC the Lizeth. If critical care is okay will plan to transfer her to telemetry bed 01 25 -We will switch the IV antibiotics to p.o. cultures were negative so far -Starting low-dose Coumadin as her INR today 2.5; monitor closely as she is on fluconazole Physical therapy cannot
[2020-11-24] MEDS ORDERED: Warfarin Sodium 2.5 MG TAB PO SCH (17:00)
[2020-11-24] MEDS: Amoxicillin/Potassium Clav 500 MG TAB PO SCH (22:19)
[2020-11-25 04:35] VITALS: BMI 30.9
[2020-11-25 04:59] LABS: #Eosinphils 0.1 thou/uL (0.0-0.7); #Monocytes 0.3 thou/uL (0.11-0.59); #Neutrophils 3.3 thou/uL (1.40-6.50); %Basophils 0.2 % (0.0-1.0); %Lymphocytes 22.3 % (21.0-51.0); %Monocytes 5.8 % (0.0-10.0); %Neutrophils 69.7 % (42.0-75.0); Hemoglobin 8.4 g/dL (12.0-16.0); Mean Corpuscular HGB CONC 31.3 g/dL (32.0-36.0); Mean Corpuscular Hemoglobin 26.9 pg (27.0-31.0); Mean Corpuscular Volume 85.9 fL (78.0-98.0); Mean Platelet Volume 9.1 fL (7.4-10.4); Platelet Count 231 thou/uL (130-400); RBC Distribution Width 17.2 % (11.5-14.5); Red Blood Cell (RBC) Count 3.11 mill/uL (4.20-5.40); White Blood Cell (WBC) Count 4.7 thou/uL (4.8-10.8)
[2020-11-25 05:06] LABS: INR-International Normal Ratio 1.7; PTT 32.2 sec (22.9-36.1); Prothrombin Time 20.6 sec (12.0-14.7)
[2020-11-25 05:32] LABS: Anion Gap 13 mmol/L (10-20); BUN (Urea Nitrogen) 68 mg/dL (9.8-20.1); Calc. Creatinine Clearance 58 mL/min (70-130); Calcium 7.7 mg/dL (7.8-10.44); Carbon Dioxide 31 mmol/L (22-29); Chloride 97 mmol/L (98-107); Glucose 81 mg/dL (70-105); Potassium 3.3 mmol/L (3.5-5.1); Sodium 138 mmol/L (136-145)
[2020-11-25] MEDS ORDERED: Potassium Chloride 20 MEQ TAB PO SCH ×2 (07:45→10:15)
[2020-11-25] MEDS: Cholecalciferol 1,000 UNITS (25 MCG) TAB PO SCH (08:12)
[2020-11-25] MEDS: Fluconazole 100 MG TAB PO SCH (08:12)
[2020-11-25] MEDS: Furosemide 20 MG TAB PO SCH (08:13)
[2020-11-25] MEDS: Amoxicillin/Potassium Clav 500 MG TAB PO SCH ×2 (09:58→20:56)
--- NOTE | 2020-11-25 14:07 | PDOC.HOSPP ---
- Subjective Encounter Date: 11/25/20 Encounter Time: 10:10 Subjective: Patient is comfortable she has no acute issues. Physical therapy nearby in the room. They stated that she is still a little unsteady somewhat. She does have a good family support at home. Given her cardiac condition she would benefit with short cardiac rehab. - Objective Vital Signs & Weight: Vital Signs (12 hours) Temp Pulse Resp BP Pulse Ox 11/25/20 11:41 98.1 F 79 18 113/67 97 11/25/20 07:24 98.1 F 75 16 132/58 L 99 11/25/20 04:00 97.3 F L 85 18 127/65 99 Weight Weight 191 lb 9.6 oz Most Recent Monitor Data Heart Rate from ECG 72 NIBP 95/68 NIBP BP-Mean 77 Respiration from ECG 15 SpO2 100 I&O: 11/24/20 11/25/20 11/26/20 06:59 06:59 06:59 Intake Total 1760 1620 Output Total 1010 600 Balance 750 1020 Result Diagrams: 11/25/20 04:07 11/25/20 04:07 Hospitalist ROS - Medication Medications: Active Medications Generic Name Dose Route Start Last Admin Trade Name Freq PRN Reason Stop Dose Admin Amoxicillin/Clavulanate Potassium 500 mg 11/24/20 21:00 11/25/20 09:58 Amoxicillin/Potassium Clav 500 Mg Tab PO 500 mg Q12HR SABINA Administration Cholecalciferol 2,000 units 11/24/20 09:00 11/25/20 08:12 Cholecalciferol 1,000 Units (25 Mcg) Tab PO 2,000 units DAILY SABINA Administration Ergocalciferol 1.25 mg 11/24/20 09:00 11/24/20 09:05 Ergocalciferol 1.25 Mg(50,000 Units) Cap PO 1.25 mg Q7DAYS SABINA Administration Fluconazole 100 mg 11/24/20 09:00 11/25/20 08:12 Fluconazole 100 Mg Tab PO 100 mg DAILY SABINA Administration Furosemide 20 mg 11/24/20 09:00 11/25/20 08:13 Furosemide 20 Mg Tab PO 20 mg DAILY SABINA Administration Norepinephrine Bitartrate 250 mls @ 0 mls/hr 11/22/20 05:00 11/22/20 04:53 Levophed IVPB 250 mls INF SABINA Administration Protocol Titrate Sodium Chloride 10 ml 11/24/20 09:00 11/25/20 08:13 Flush - Normal Saline 10 Ml Syringe IVF 10 ml Q12HR SABINA Administration Warfarin Sodium 2.5 mg 11/24/20 17:00 11/24/20 17:21 Warfarin Sodium 2.5 Mg Tab PO 2.5 mg 1700 SABINA Administration - Exam General Appearance: NAD, awake alert Eye: PERRL ENT: normocephalic atraumatic Neck: supple Heart: RRR Respiratory: CTAB, normal chest expansion Gastrointestinal: soft, normal bowel sounds Neurological: cranial nerve grossly intact, no focal deficits Psychiatric: normal affect, normal behavior, A&O x 3 Hosp A/P - Plan Septic shock - UA suggestive of UTIpossible source Sepsis secondary to UTI -Urine cultures so far no growth -Cultures no growth -Vancomycin and cefepime Hypotension secondary to sepsis -Proved with trial of Levophed. Acute metabolic encephalopathy secondary to above -She appears to be back to baseline she is alert oriented x3 today. A. fib with RVR --Status post IV amiodarone infusion. --Daily INR, on Coumadin Acute hypoxic respiratory failure Likely secondary to flash pulmonary edema from A. fib RVR with severe valvulopathy. Severe mitral regurgitation; the atrial enlargement Pulmonary hypertension Acute CHF exacerbation with preserved EF -She was anticoagulated with Coumadin and her INR was slightly elevated. We will DC the Coumadin and restart when the INR is less than 3. PORFIRIO -Hyperkalemia -Kayexalate seems to be helping but still potassium on the high end in the setting of kidney injury. -Appreciate the renal input -Anemia stable Full code Will monitor her urine output but she does not need to have Stanley. She is off the pressor. Her INR is still 3.9 so we are holding the Coumadin until INR less than 3. Patient also noted to have some vaginal white discharge. I am empirically treating her with the p.o. fluconazole. With the fluconazole INR expected to be trending up - so not giving Coumadin until INR is less than 3. DC the Stanley. If critical care is okay will plan to transfer her to telemetry bed 2 -We will switch the IV antibiotics to p.o. cultures were negative so far -Starting low-dose Coumadin as her INR today 2.5; monitor closely as she is on fluconazole Her bicarb is trending up--bicarbonate supplement has been discontinued. Vitamin D deficiency being supplemented. I started her on daily Augmentin for urinary tract infection. she is in afib; Given her cardiomyopathy and severe valvulopathy of mitral regurgitation and the presentation with volume overload, she would benefit with short inpatient cardiac rehab. We will check with the ed case manager on that plan. She does have a good family support. If rehab is not an option she would be able to go home with home physical therapy. Pending cardiology as well as renal clearance.
--- NOTE | 2020-11-25 15:08 | PDOC.NEPPN ---
- Subjective Encounter Date: 11/25/20 Subjective: Feeling better. Now with more edema of the legs. - Objective Vital Signs & Weight: Vital Signs (12 hours) Temp Pulse Resp BP Pulse Ox 11/25/20 11:41 98.1 F 79 18 113/67 97 11/25/20 07:24 98.1 F 75 16 132/58 L 99 11/25/20 04:00 97.3 F L 85 18 127/65 99 Weight Weight 191 lb 9.6 oz Most Recent Monitor Data Heart Rate from ECG 72 NIBP 95/68 NIBP BP-Mean 77 Respiration from ECG 15 SpO2 100 I&O: 11/24/20 11/25/20 11/26/20 06:59 06:59 06:59 Intake Total 1760 1620 Output Total 1010 600 Balance 750 1020 Result Diagrams: 11/25/20 04:07 11/25/20 04:07 Nephrology ROS - Medication Medications: Active Medications Generic Name Dose Route Start Last Admin Trade Name Freq PRN Reason Stop Dose Admin Amoxicillin/Clavulanate Potassium 500 mg 11/24/20 21:00 11/25/20 09:58 Amoxicillin/Potassium Clav 500 Mg Tab PO 500 mg Q12HR SABINA Administration Cholecalciferol 2,000 units 11/24/20 09:00 11/25/20 08:12 Cholecalciferol 1,000 Units (25 Mcg) Tab PO 2,000 units DAILY SABINA Administration Ergocalciferol 1.25 mg 11/24/20 09:00 11/24/20 09:05 Ergocalciferol 1.25 Mg(50,000 Units) Cap PO 1.25 mg Q7DAYS SABINA Administration Fluconazole 100 mg 11/24/20 09:00 11/25/20 08:12 Fluconazole 100 Mg Tab PO 100 mg DAILY SABINA Administration Furosemide 20 mg 11/24/20 09:00 11/25/20 08:13 Furosemide 20 Mg Tab PO 20 mg DAILY SABINA Administration Norepinephrine Bitartrate 250 mls @ 0 mls/hr 11/22/20 05:00 11/22/20 04:53 Levophed IVPB 250 mls INF SABINA Administration Protocol Titrate Sodium Chloride 10 ml 11/24/20 09:00 11/25/20 08:13 Flush - Normal Saline 10 Ml Syringe IVF 10 ml Q12HR SABINA Administration - Exam General Appearance: awake alert Eye: anicteric sclera ENT: normocephalic atraumatic Neck: supple, symmetric Respiratory - other findings: fair air entry bilaterally with few transmitted sound Cardiovascular: irregular, murmur present Gastrointestinal: soft, non-tender, non-distended, normal bowel sounds Extremities: no cyanosis Extremities - other findings: moderate bilateral leg edema Neurological: CN's grossly intact, no focal deficits Musculoskeletal: generalized weakness PSYCH: A&O x 3 Nephrology Results - Labs Result Diagrams: 11/25/20 04:07 11/25/20 04:07 Lab results: WBC 4.7 thou/uL (4.8-10.8) L 11/25/20 04:07 Hgb 8.4 g/dL (12.0-16.0) L 11/25/20 04:07 Hct 26.7 % (36.0-47.0) L 11/25/20 04:07 MCV 85.9 fL (78.0-98.0) 11/25/20 04:07 Plt Count 231 thou/uL (130-400) 11/25/20 04:07 Neutrophils % 69.7 % (42.0-75.0) 11/25/20 04:07 Band Neuts % (Manual) 1 % (5-11) L 11/24/20 06:35 ABG pH 7.31 (7.35-7.45) L 11/21/20 22:27 ABG pCO2 28.6 mmHg (35.0-45.0) L 11/21/20 22:27 ABG pO2 208.1 mmHg (80.0-100.0) H 11/21/20 22:27 Sodium 138 mmol/L (136-145) 11/25/20 04:07 Potassium 3.3 mmol/L (3.5-5.1) L 11/25/20 04:07 Chloride 97 mmol/L (98-107) L 11/25/20 04:07 Carbon Dioxide 31 mmol/L (22-29) H 11/25/20 04:07 BUN 68 mg/dL (9.8-20.1) H 11/25/20 04:07 Creatinine 1.46 mg/dL (0.6-1.1) H 11/25/20 04:07 Glucose 81 mg/dL (70-105) 11/25/20 04:07 Lactic Acid 1.4 mmol/L (0.5-2.2) 11/23/20 10:07 Calcium 7.7 mg/dL (7.8-10.44) L 11/25/20 04:07 Total Bilirubin 2.1 mg/dL (0.2-1.2) H 11/21/20 21:43 AST 50 U/L (5-34) H 11/21/20 21:43 ALT 51 U/L (8-55) 11/21/20 21:43 Alkaline Phosphatase 202 U/L (40-110) H 11/21/20 21:43 Troponin I 0.070 ng/mL (< 0.028) H 11/22/20 02:30 Serum Total Protein 8.3 g/dL (6.0-8.3) 11/21/20 21:43 Albumin 2.7 g/dL (3.5-5.0) L 11/21/20 21:43 Urine Ketones Negative mg/dL (Negative) 11/22/20 03:10 Urine Blood 2+ (Negative) A 11/22/20 03:10 Urine Nitrite Negative (Negative) 11/22/20 03:10 Ur Leukocyte Esterase 500 Orlin/uL (Negative) A 11/22/20 03:10 Urine RBC 11-20 HPF (0-3) A 11/22/20 03:10 Urine WBC Greater than 50 HPF (0-3) A 11/22/20 03:10 Ur Squamous Epith Cells 0-3 HPF (0-3) 11/22/20 03:10 Urine Bacteria 3+ HPF (None Seen) A 11/22/20 03:10 Sodium 138 mmol/L (136-145) 11/25/20 04:07 Potassium 3.3 mmol/L (3.5-5.1) L 11/25/20 04:07 Chloride 97 mmol/L (98-107) L 11/25/20 04:07 Carbon Dioxide 31 mmol/L (22-29) H 11/25/20 04:07 Anion Gap 13 mmol/L (10-20) 11/25/20 04:07 BUN 68 mg/dL (9.8-20.1) H 11/25/20 04:07 Creatinine 1.46 mg/dL (0.6-1.1) H 11/25/20 04:07 Glucose 81 mg/dL (70-105) 11/25/20 04:07 Calcium 7.7 mg/dL (7.8-10.44) L 11/25/20 04:07 Magnesium 1.8 mg/dL (1.6-2.6) 11/25/20 04:07 Albumin 2.7 g/dL (3.5-5.0) L 11/21/20 21:43 Nephrology AP PN - Plan ASSESSMENT: Acute renal failure: Due to hemodynamic factors related to volume depletion as well as acute cardiac decompensation due tp PAF. Creat has decreased significantly with IVF. Hyperkalemia: Most likely due to potassium shift related to metabolic acidosis as well as acute kidney injury. Resolved Metabolic acidosis. Circulatory shock: Etiology is not very clear. Most likely due to volume depletion and acute cardiac decompensation related to atrial fibrillation. Sepsis is a concern but patient had no SIRS at presentation. Improved with IVF and Pressors. Off pressors. Severe mitral regurgitation. Atrial fibrillation. Acute respiratory failure due to cardiac decompensation. Off oxygen Hypocalcemia Vitamin D deficiency Proteinuria Hypokalemia Bilateral leg edema: due to fluid overload Plan Disontinue IVF. Start gentle diuresis. Replete serum potassium and start supplementation in view on diuretic therapy. Monitor intake and output and renal function.
[2020-11-25] MEDS: Warfarin Sodium 5 MG TAB PO SCH (16:47)
[2020-11-26 07:54] LABS: Albumin 2.5 g/dL (3.5-5.0); Anion Gap 12 mmol/L (10-20); BUN (Urea Nitrogen) 42 mg/dL (9.8-20.1); Calc. Creatinine Clearance 78 mL/min (70-130); Calcium 8.1 mg/dL (7.8-10.44); Carbon Dioxide 34 mmol/L (22-29); Chloride 99 mmol/L (98-107); Glucose 86 mg/dL (70-105); Phosphorus 2.2 mg/dL (2.3-4.7); Potassium 3.9 mmol/L (3.5-5.1); Sodium 141 mmol/L (136-145)
[2020-11-26 08:33] LABS: #Eosinphils 0.1 thou/uL (0.0-0.7); #Lymphocytes 1.2 thou/uL (1.20-3.40); #Monocytes 0.3 thou/uL (0.11-0.59); #Neutrophils 3.8 thou/uL (1.40-6.50); %Basophils 0.5 % (0.0-1.0); %Eosinophils 1.6 % (0.0-10.0); %Lymphocytes 22.2 % (21.0-51.0); %Monocytes 6.3 % (0.0-10.0); %Neutrophils 69.4 % (42.0-75.0); Hemoglobin 8.5 g/dL (12.0-16.0); Mean Corpuscular HGB CONC 31.1 g/dL (32.0-36.0); Mean Corpuscular Hemoglobin 27.2 pg (27.0-31.0); Mean Corpuscular Volume 87.5 fL (78.0-98.0); Mean Platelet Volume 8.9 fL (7.4-10.4); Platelet Count 225 thou/uL (130-400); RBC Distribution Width 17.3 % (11.5-14.5); Red Blood Cell (RBC) Count 3.13 mill/uL (4.20-5.40); White Blood Cell (WBC) Count 5.4 thou/uL (4.8-10.8)
[2020-11-26] MEDS: Amoxicillin/Potassium Clav 500 MG TAB PO SCH ×2 (08:49→21:11)
[2020-11-26] MEDS: Fluconazole 100 MG TAB PO SCH (08:49)
[2020-11-26] MEDS: Furosemide 20 MG TAB PO SCH (08:49)
[2020-11-26] MEDS: Cholecalciferol 1,000 UNITS (25 MCG) TAB PO SCH (08:49)
[2020-11-26] MEDS ORDERED: Iopamidol 370 76% 100 ML VIAL ONE (09:21)
--- NOTE | 2020-11-26 11:46 | PDOC.NEPPN ---
- Subjective Encounter Date: 11/26/20 Subjective: Seen and exmined. SOB has subsided. till will edema of the legs. Getting stronger. - Objective Vital Signs & Weight: Vital Signs (12 hours) Temp Pulse Resp BP Pulse Ox 11/26/20 11:03 98.1 F 110 H 18 128/82 97 11/26/20 07:22 97.6 F 58 L 18 111/55 L 18 L 11/26/20 04:42 96.7 F L 101 H 20 133/94 H 100 Weight Weight 192 lb 1.6 oz Most Recent Monitor Data Heart Rate from ECG 72 NIBP 95/68 NIBP BP-Mean 77 Respiration from ECG 15 SpO2 100 I&O: 11/25/20 11/26/20 11/27/20 06:59 06:59 06:59 Intake Total 1620 1650 Output Total 600 1800 Balance 1020 -150 Result Diagrams: 11/26/20 07:00 11/27/20 05:02 Nephrology ROS - Medication Medications: Active Medications Generic Name Dose Route Start Last Admin Trade Name Freq PRN Reason Stop Dose Admin Amoxicillin/Clavulanate Potassium 500 mg 11/24/20 21:00 11/26/20 08:49 Amoxicillin/Potassium Clav 500 Mg Tab PO 500 mg Q12HR SABINA Administration Cholecalciferol 2,000 units 11/24/20 09:00 11/26/20 08:49 Cholecalciferol 1,000 Units (25 Mcg) Tab PO 2,000 units DAILY SABINA Administration Ergocalciferol 1.25 mg 11/24/20 09:00 11/24/20 09:05 Ergocalciferol 1.25 Mg(50,000 Units) Cap PO 1.25 mg Q7DAYS SABINA Administration Fluconazole 100 mg 11/24/20 09:00 11/26/20 08:49 Fluconazole 100 Mg Tab PO 100 mg DAILY SABINA Administration Furosemide 20 mg 11/24/20 09:00 11/26/20 08:49 Furosemide 20 Mg Tab PO 20 mg DAILY SABINA Administration Norepinephrine Bitartrate 250 mls @ 0 mls/hr 11/22/20 05:00 11/22/20 04:53 Levophed IVPB 250 mls INF SABINA Administration Protocol Titrate Sodium Chloride 10 ml 11/24/20 09:00 11/26/20 08:49 Flush - Normal Saline 10 Ml Syringe IVF 10 ml Q12HR SABINA Administration Warfarin Sodium 5 mg 11/25/20 17:00 11/25/20 16:47 Warfarin Sodium 5 Mg Tab PO 5 mg 1700 SABINA Administration - Exam General Appearance: awake alert Eye: anicteric sclera ENT: normocephalic atraumatic Neck: symmetric Respiratory: no wheezes, no ronchi, normal chest expansion, no tachypnea Cardiovascular: irregular, murmur present Gastrointestinal: soft, non-tender, non-distended, normal bowel sounds Extremities: 1+ LE edema Neurological: CN's grossly intact PSYCH: A&O x 3 Nephrology Results - Labs Result Diagrams: 11/26/20 07:00 11/27/20 05:02 Lab results: WBC 5.4 thou/uL (4.8-10.8) 11/26/20 07:00 Hgb 8.5 g/dL (12.0-16.0) L 11/26/20 07:00 Hct 27.4 % (36.0-47.0) L 11/26/20 07:00 MCV 87.5 fL (78.0-98.0) 11/26/20 07:00 Plt Count 225 thou/uL (130-400) 11/26/20 07:00 Neutrophils % 69.4 % (42.0-75.0) 11/26/20 07:00 Band Neuts % (Manual) 1 % (5-11) L 11/24/20 06:35 ABG pH 7.31 (7.35-7.45) L 11/21/20 22:27 ABG pCO2 28.6 mmHg (35.0-45.0) L 11/21/20 22:27 ABG pO2 208.1 mmHg (80.0-100.0) H 11/21/20 22:27 Sodium 141 mmol/L (136-145) 11/26/20 07:00 Potassium 3.9 mmol/L (3.5-5.1) 11/26/20 07:00 Chloride 99 mmol/L (98-107) 11/26/20 07:00 Carbon Dioxide 34 mmol/L (22-29) H 11/26/20 07:00 BUN 42 mg/dL (9.8-20.1) H 11/26/20 07:00 Creatinine 1.09 mg/dL (0.6-1.1) 11/26/20 07:00 Glucose 86 mg/dL (70-105) 11/26/20 07:00 Lactic Acid 1.4 mmol/L (0.5-2.2) 11/23/20 10:07 Calcium 8.1 mg/dL (7.8-10.44) 11/26/20 07:00 Total Bilirubin 2.1 mg/dL (0.2-1.2) H 11/21/20 21:43 AST 50 U/L (5-34) H 11/21/20 21:43 ALT 51 U/L (8-55) 11/21/20 21:43 Alkaline Phosphatase 202 U/L (40-110) H 11/21/20 21:43 Troponin I 0.070 ng/mL (< 0.028) H 11/22/20 02:30 Serum Total Protein 8.3 g/dL (6.0-8.3) 11/21/20 21:43 Albumin 2.5 g/dL (3.5-5.0) L 11/26/20 07:00 Urine Ketones Negative mg/dL (Negative) 11/22/20 03:10 Urine Blood 2+ (Negative) A 11/22/20 03:10 Urine Nitrite Negative (Negative) 11/22/20 03:10 Ur Leukocyte Esterase 500 Orlin/uL (Negative) A 11/22/20 03:10 Urine RBC 11-20 HPF (0-3) A 11/22/20 03:10 Urine WBC Greater than 50 HPF (0-3) A 11/22/20 03:10 Ur Squamous Epith Cells 0-3 HPF (0-3) 11/22/20 03:10 Urine Bacteria 3+ HPF (None Seen) A 11/22/20 03:10 Sodium 141 mmol/L (136-145) 11/26/20 07:00 Potassium 3.9 mmol/L (3.5-5.1) 11/26/20 07:00 Chloride 99 mmol/L (98-107) 11/26/20 07:00 Carbon Dioxide 34 mmol/L (22-29) H 11/26/20 07:00 Anion Gap 12 mmol/L (10-20) 11/26/20 07:00 BUN 42 mg/dL (9.8-20.1) H 11/26/20 07:00 Creatinine 1.09 mg/dL (0.6-1.1) 11/26/20 07:00 Glucose 86 mg/dL (70-105) 11/26/20 07:00 Calcium 8.1 mg/dL (7.8-10.44) 11/26/20 07:00 Phosphorus 2.2 mg/dL (2.3-4.7) L 11/26/20 07:00 Magnesium 1.8 mg/dL (1.6-2.6) 11/25/20 04:07 Albumin 2.5 g/dL (3.5-5.0) L 11/26/20 07:00 Nephrology AP PN - Plan ASSESSMENT: Acute renal failure: Due to hemodynamic factors related to volume depletion as well as acute cardiac decompensation due tp PAF. Improved with IVF. Hyperkalemia: Most likely due to potassium shift related to metabolic acidosis as well as acute kidney injury. Resolved Metabolic acidosis. Circulatory shock: Etiology is not very clear. Most likely due to volume depletion and acute cardiac decompensation related to atrial fibrillation. Sepsis is a concern but patient had no SIRS at presentation. Improved with IVF and Pressors. Off pressors. Severe mitral regurgitation. Atrial fibrillation. Acute respiratory failure due to cardiac decompensation. Off oxygen Hypocalcemia Vitamin D deficiency Proteinuria Hypokalemia Bilateral leg edema: due to fluid overload. Improving with diuretics. Plan Continue Lasix and spironolactone. Replete serum potassium and start supplementation in view on diuretic therapy. Monitor intake and output and renal function.
[2020-11-26] MEDS ORDERED: Nitroglycerin 100MG/250ML BOT 250 ML ONE (12:23)
[2020-11-26] MEDS ORDERED: Verapamil 5 MG/2 ML VIAL ONE (12:23)
[2020-11-26] MEDS ORDERED: Heparin 10,000 UNITS/ 10 ML VIAL ONE (12:23)
--- NOTE | 2020-11-26 12:50 | PDOC.HOSPP ---
- Subjective Encounter Date: 11/26/20 Encounter Time: 10:50 Subjective: I had the opportunity to visit when Dr. Gonzalez was explaining to her the overall cardiac issues and the need to do the cath and if necessary her mitral valve may have to be replaced. Patient little upset and anxious about her overall situation. She is quite anxious to go home. she is a high risk patients patient with cardiomyopathy valvulopathy and CHF for repeat readmissions as evidenced by the last few admissions. Currently she is euvolemic. I think with the diuresis she has some contraction alkalosis will correct that with the couple of days of Diamox. Possible cath either today or tomorrow - Objective Vital Signs & Weight: Vital Signs (12 hours) Temp Pulse Resp BP Pulse Ox 11/26/20 11:03 98.1 F 110 H 18 128/82 97 11/26/20 07:22 97.6 F 58 L 18 111/55 L 18 L 11/26/20 04:42 96.7 F L 101 H 20 133/94 H 100 Weight Weight 192 lb 1.6 oz Most Recent Monitor Data Heart Rate from ECG 72 NIBP 95/68 NIBP BP-Mean 77 Respiration from ECG 15 SpO2 100 I&O: 11/25/20 11/26/20 11/27/20 06:59 06:59 06:59 Intake Total 1620 1650 Output Total 600 1800 Balance 1020 -150 Result Diagrams: 11/26/20 07:00 11/26/20 07:00 Hospitalist ROS - Medication Medications: Active Medications Generic Name Dose Route Start Last Admin Trade Name Freq PRN Reason Stop Dose Admin Amoxicillin/Clavulanate Potassium 500 mg 11/24/20 21:00 11/26/20 08:49 Amoxicillin/Potassium Clav 500 Mg Tab PO 500 mg Q12HR SABINA Administration Cholecalciferol 2,000 units 11/24/20 09:00 11/26/20 08:49 Cholecalciferol 1,000 Units (25 Mcg) Tab PO 2,000 units DAILY SABINA Administration Ergocalciferol 1.25 mg 11/24/20 09:00 11/24/20 09:05 Ergocalciferol 1.25 Mg(50,000 Units) Cap PO 1.25 mg Q7DAYS SABINA Administration Fluconazole 100 mg 11/24/20 09:00 11/26/20 08:49 Fluconazole 100 Mg Tab PO 100 mg DAILY SABINA Administration Furosemide 20 mg 11/24/20 09:00 11/26/20 08:49 Furosemide 20 Mg Tab PO 20 mg DAILY SABINA Administration Norepinephrine Bitartrate 250 mls @ 0 mls/hr 11/22/20 05:00 11/22/20 04:53 Levophed IVPB 250 mls INF SABINA Administration Protocol Titrate Sodium Chloride 10 ml 11/24/20 09:00 11/26/20 08:49 Flush - Normal Saline 10 Ml Syringe IVF 10 ml Q12HR SABINA Administration Warfarin Sodium 5 mg 11/25/20 17:00 11/25/20 16:47 Warfarin Sodium 5 Mg Tab PO 5 mg 1700 SABINA Administration - Exam General Appearance: NAD, awake alert Eye: PERRL ENT: normocephalic atraumatic Neck: supple Heart: RRR, normal peripheral pulses Respiratory: CTAB, normal chest expansion Gastrointestinal: soft, normal bowel sounds Extremities: 1+ LE edema Neurological: cranial nerve grossly intact, no focal deficits Musculoskeletal: normal tone, generalized weakness Psychiatric: normal affect, normal behavior, A&O x 3 Hosp A/P - Plan Septic shock - UA suggestive of UTIpossible source Sepsis secondary to UTI -Urine cultures so far no growth -Cultures no growth -Vancomycin and cefepime Hypotension secondary to sepsis -Proved with trial of Levophed. Acute metabolic encephalopathy secondary to above -She appears to be back to baseline she is alert oriented x3 today. A. fib with RVR --Status post IV amiodarone infusion. --Daily INR, on Coumadin Acute hypoxic respiratory failure Likely secondary to flash pulmonary edema from A. fib RVR with severe valvulopathy. Severe mitral regurgitation; the atrial enlargement Pulmonary hypertension Acute CHF exacerbation with preserved EF -She was anticoagulated with Coumadin and her INR was slightly elevated. We will DC the Coumadin and restart when the INR is less than 3. PORFIRIO -Hyperkalemia -Kayexalate seems to be helping but still potassium on the high end in the setting of kidney injury. -Appreciate the renal input -Anemia stable Full code Will monitor her urine output but she does not need to have Stanley. She is off the pressor. Her INR is still 3.9 so we are holding the Coumadin until INR less than 3. Patient also noted to have some vaginal white discharge. I am empirically treating her with the p.o. fluconazole. With the fluconazole INR expected to be trending up - so not giving Coumadin until INR is less than 3. DC the Stanley. If critical care is okay will plan to transfer her to telemetry bed 2 -We will switch the IV antibiotics to p.o. cultures were negative so far -Starting low-dose Coumadin as her INR today 2.5; monitor closely as she is on fluconazole Her bicarb is trending up--bicarbonate supplement has been discontinued. Vitamin D deficiency being supplemented. I started her on daily Augmentin for urinary tract infection. she is in afib; Given her cardiomyopathy and severe valvulopathy of mitral regurgitation and the presentation with volume overload, she would benefit with short inpatient card iac rehab. We will check with the outpatient case manager on that plan. She does have a good family support. If rehab is not an option she would be able to go home with home physical therapy. Pending cardiology as well as renal clearance. she is a high risk patients patient with cardiomyopathy valvulopathy and CHF for repeat readmissions as evidenced by the last few admissions. Currently she is euvolemic. I think with the diuresis she has some contraction alkalosis will correct that with the couple of days of Diamox. Possible cath either today or tomorrow. She is an uninsured patient.
[2020-11-26] MEDS ORDERED: Midazolam HCl 2 mg/2 ml Vial ONE (13:27)
[2020-11-26 14:30] LABS: Site AU; Site RA
[2020-11-26 14:31] LABS: Site PW
[2020-11-26 14:33] LABS: Site PA
[2020-11-26] MEDS ORDERED: Digoxin 0.5 MG/2 ML AMP SLOW IVP SCH (15:00)
[2020-11-26] MEDS ORDERED: Sodium Chloride 0.9% 200 ML IV PRN (15:09)
[2020-11-26] MEDS ORDERED: Acetaminophen/Codeine 30-300mg Tablet PO PRN ×2 (15:09)
[2020-11-26] MEDS ORDERED: Nitroglycerin 0.4 MG TAB (25 Tab Bottle) SL PRN (15:09)
[2020-11-26] MEDS ORDERED: Metoprolol Tartrate 25 MG TAB PO SCH ×2 (15:45→21:00)
[2020-11-26] MEDS: Warfarin Sodium 5 MG TAB PO SCH (16:48)
[2020-11-26] MEDS: PHOS-NAK 1 PKT PACK PO SCH (21:10)
[2020-11-26] MEDS: Metoprolol Tartrate 25 MG TAB PO SCH (21:10)
[2020-11-26] MEDS: Digoxin 0.5 MG/2 ML AMP SLOW IVP SCH (21:11)
[2020-11-26] MEDS: AcetaZOLAMIDE 250 MG TAB PO SCH (21:11)
[2020-11-27] MEDS: Digoxin 0.5 MG/2 ML AMP SLOW IVP SCH (04:39)
[2020-11-27 05:40] LABS: INR-International Normal Ratio 1.9; Prothrombin Time 22.4 sec (12.0-14.7)
[2020-11-27 05:58] LABS: Anion Gap 11 mmol/L (10-20); BUN (Urea Nitrogen) 32 mg/dL (9.8-20.1); Calc. Creatinine Clearance 76 mL/min (70-130); Calcium 8.1 mg/dL (7.8-10.44); Carbon Dioxide 31 mmol/L (22-29); Chloride 102 mmol/L (98-107); Glucose 103 mg/dL (70-105); Potassium 4.2 mmol/L (3.5-5.1); Sodium 140 mmol/L (136-145)
[2020-11-27] MEDS: PHOS-NAK 1 PKT PACK PO SCH (08:05)
[2020-11-27] MEDS: Metoprolol Tartrate 25 MG TAB PO SCH (08:06)
[2020-11-27] MEDS: Furosemide 20 MG TAB PO SCH (08:06)
[2020-11-27] MEDS: Fluconazole 100 MG TAB PO SCH (08:06)
[2020-11-27] MEDS: AcetaZOLAMIDE 250 MG TAB PO SCH (08:07)
[2020-11-27] MEDS: Cholecalciferol 1,000 UNITS (25 MCG) TAB PO SCH (08:07)
[2020-11-27] MEDS: Amoxicillin/Potassium Clav 500 MG TAB PO SCH (08:07)
[2020-11-27] MEDS ORDERED: Digoxin 0.25 MG TAB PO SCH (09:00)
--- NOTE | 2020-11-27 09:08 | PDOC.NEPPN ---
- Subjective Encounter Date: 11/27/20 Subjective: Seen feeling better. No new problem. - Objective Vital Signs & Weight: Vital Signs (12 hours) Temp Pulse Resp BP BP Pulse Ox 11/27/20 06:56 97.6 F 87 18 116/76 97 11/27/20 04:41 97.7 F 78 20 105/59 L 96 11/27/20 04:39 87 11/26/20 21:11 87 Weight Weight 180 lb 6.4 oz Most Recent Monitor Data Heart Rate from ECG 72 NIBP 95/68 NIBP BP-Mean 77 Respiration from ECG 15 SpO2 100 I&O: 11/26/20 11/27/20 11/28/20 06:59 06:59 06:59 Intake Total 1650 1370 Output Total 1800 300 Balance -150 1070 Result Diagrams: 11/26/20 07:00 11/27/20 05:02 Nephrology ROS - Medication Medications: Active Medications Generic Name Dose Route Start Last Admin Trade Name Freq PRN Reason Stop Dose Admin Acetazolamide 500 mg 11/26/20 21:00 11/27/20 08:07 Acetazolamide 250 Mg Tab PO 11/28/20 21:01 500 mg BID SABINA Administration Amoxicillin/Clavulanate Potassium 500 mg 11/24/20 21:00 11/27/20 08:07 Amoxicillin/Potassium Clav 500 Mg Tab PO 500 mg Q12HR SABINA Administration Cholecalciferol 2,000 units 11/24/20 09:00 11/27/20 08:07 Cholecalciferol 1,000 Units (25 Mcg) Tab PO 2,000 units DAILY SABINA Administration Digoxin 0.25 mg 11/27/20 09:00 11/27/20 08:06 Digoxin 0.25 Mg Tab PO 0.25 mg QAM SABINA Administration Ergocalciferol 1.25 mg 11/24/20 09:00 11/24/20 09:05 Ergocalciferol 1.25 Mg(50,000 Units) Cap PO 1.25 mg Q7DAYS SABINA Administration Fluconazole 100 mg 11/24/20 09:00 11/27/20 08:06 Fluconazole 100 Mg Tab PO 100 mg DAILY SABINA Administration Furosemide 20 mg 11/24/20 09:00 11/27/20 08:06 Furosemide 20 Mg Tab PO 20 mg DAILY SABINA Administration Metoprolol Tartrate 25 mg 11/26/20 21:00 11/27/20 08:06 Metoprolol Tartrate 25 Mg Tab PO 25 mg BID SABINA Administration Miscellaneous Medication 1 pkt 11/26/20 21:00 11/27/20 08:05 Phos-Nak 1 Pkt Pack PO 11/27/20 14:00 1 pkt BID SABINA Administration Sodium Chloride 10 ml 11/24/20 09:00 11/27/20 08:06 Flush - Normal Saline 10 Ml Syringe IVF 10 ml Q12HR SABINA Administration - Exam General Appearance: awake alert Eye: anicteric sclera ENT: normocephalic atraumatic, moist mucosa Neck: symmetric, no JVD Respiratory: no wheezes, no rales, no ronchi, normal chest expansion, no tachypnea Cardiovascular: RRR, murmur present Gastrointestinal: soft, non-tender, non-distended, normal bowel sounds Extremities: 1+ LE edema Neurological: CN's grossly intact, no focal deficits PSYCH: A&O x 3 Nephrology Results - Labs Result Diagrams: 11/26/20 07:00 11/27/20 05:02 Lab results: WBC 5.4 thou/uL (4.8-10.8) 11/26/20 07:00 Hgb 8.5 g/dL (12.0-16.0) L 11/26/20 07:00 Hct 27.4 % (36.0-47.0) L 11/26/20 07:00 MCV 87.5 fL (78.0-98.0) 11/26/20 07:00 Plt Count 225 thou/uL (130-400) 11/26/20 07:00 Neutrophils % 69.4 % (42.0-75.0) 11/26/20 07:00 Band Neuts % (Manual) 1 % (5-11) L 11/24/20 06:35 ABG pH 7.31 (7.35-7.45) L 11/21/20 22:27 ABG pCO2 28.6 mmHg (35.0-45.0) L 11/21/20 22:27 ABG pO2 208.1 mmHg (80.0-100.0) H 11/21/20 22:27 Sodium 140 mmol/L (136-145) 11/27/20 05:02 Potassium 4.2 mmol/L (3.5-5.1) 11/27/20 05:02 Chloride 102 mmol/L (98-107) 11/27/20 05:02 Carbon Dioxide 31 mmol/L (22-29) H 11/27/20 05:02 BUN 32 mg/dL (9.8-20.1) H 11/27/20 05:02 Creatinine 1.05 mg/dL (0.6-1.1) 11/27/20 05:02 Glucose 103 mg/dL (70-105) 11/27/20 05:02 Lactic Acid 1.4 mmol/L (0.5-2.2) 11/23/20 10:07 Calcium 8.1 mg/dL (7.8-10.44) 11/27/20 05:02 Total Bilirubin 2.1 mg/dL (0.2-1.2) H 11/21/20 21:43 AST 50 U/L (5-34) H 11/21/20 21:43 ALT 51 U/L (8-55) 11/21/20 21:43 Alkaline Phosphatase 202 U/L (40-110) H 11/21/20 21:43 Troponin I 0.070 ng/mL (< 0.028) H 11/22/20 02:30 Serum Total Protein 8.3 g/dL (6.0-8.3) 11/21/20 21:43 Albumin 2.5 g/dL (3.5-5.0) L 11/26/20 07:00 Urine Ketones Negative mg/dL (Negative) 11/22/20 03:10 Urine Blood 2+ (Negative) A 11/22/20 03:10 Urine Nitrite Negative (Negative) 11/22/20 03:10 Ur Leukocyte Esterase 500 Orlin/uL (Negative) A 11/22/20 03:10 Urine RBC 11-20 HPF (0-3) A 11/22/20 03:10 Urine WBC Greater than 50 HPF (0-3) A 11/22/20 03:10 Ur Squamous Epith Cells 0-3 HPF (0-3) 11/22/20 03:10 Urine Bacteria 3+ HPF (None Seen) A 11/22/20 03:10 Sodium 140 mmol/L (136-145) 11/27/20 05:02 Potassium 4.2 mmol/L (3.5-5.1) 11/27/20 05:02 Chloride 102 mmol/L (98-107) 11/27/20 05:02 Carbon Dioxide 31 mmol/L (22-29) H 11/27/20 05:02 Anion Gap 11 mmol/L (10-20) 11/27/20 05:02 BUN 32 mg/dL (9.8-20.1) H 11/27/20 05:02 Creatinine 1.05 mg/dL (0.6-1.1) 11/27/20 05:02 Glucose 103 mg/dL (70-105) 11/27/20 05:02 Calcium 8.1 mg/dL (7.8-10.44) 11/27/20 05:02 Phosphorus 2.2 mg/dL (2.3-4.7) L 11/26/20 07:00 Magnesium 1.8 mg/dL (1.6-2.6) 11/25/20 04:07 Albumin 2.5 g/dL (3.5-5.0) L 11/26/20 07:00 Nephrology AP PN - Plan ASSESSMENT: Acute renal failure: Due to hemodynamic factors related to volume depletion as well as acute cardiac decompensation due tp PAF. Resolved. Hyperkalemia: Most likely due to potassium shift related to metabolic acidosis as well as acute kidney injury. Resolved Metabolic acidosis. Circulatory shock: Etiology is not very clear. Most likely due to volume depletion and acute cardiac decompensation related to atrial fibrillation. Sepsis is a concern but patient had no SIRS at presentation. Improved with IVF and Pressors. Off pressors. Severe mitral regurgitation. Atrial fibrillation. Acute respiratory failure due to cardiac decompensation. Off oxygen Hypocalcemia Vitamin D deficiency Proteinuria Hypokalemia: Repleted Bilateral leg edema: due to fluid overload. Improved with diuretic. Plan Continue gentle diuresis with low dose lasix and spironolactone Monitor intake and output and renal function. Mitral valve and cardiac dysfunction treatment as per cardiology. Can be discharged from nephrology point of view.
[2020-11-27 11:12] VITALS: TEMP 97.9
--- NOTE | 2020-11-27 11:58 | PDOC.HOSPP ---
- Subjective Encounter Date: 11/27/20 Encounter Time: 10:10 Subjective: Status post cath on afternoon; report pending however it has been informed that patient does not have any coronary artery blockage. More of mitral valve issues. - Objective Vital Signs & Weight: Vital Signs (12 hours) Temp Pulse Resp BP BP Pulse Ox 11/27/20 11:12 97.9 F 86 18 118/78 96 11/27/20 06:56 97.6 F 87 18 116/76 97 11/27/20 04:41 97.7 F 78 20 105/59 L 96 11/27/20 04:39 87 Weight Weight 180 lb 6.4 oz Most Recent Monitor Data Heart Rate from ECG 72 NIBP 95/68 NIBP BP-Mean 77 Respiration from ECG 15 SpO2 100 I&O: 11/26/20 11/27/20 11/28/20 06:59 06:59 06:59 Intake Total 1650 1370 Output Total 1800 300 Balance -150 1070 Result Diagrams: 11/26/20 07:00 11/27/20 05:02 Hospitalist ROS - Medication Medications: Active Medications Generic Name Dose Route Start Last Admin Trade Name Freq PRN Reason Stop Dose Admin Acetazolamide 500 mg 11/26/20 21:00 11/27/20 08:07 Acetazolamide 250 Mg Tab PO 11/28/20 21:01 500 mg BID SABINA Administration Amoxicillin/Clavulanate Potassium 500 mg 11/24/20 21:00 11/27/20 08:07 Amoxicillin/Potassium Clav 500 Mg Tab PO 500 mg Q12HR SABINA Administration Cholecalciferol 2,000 units 11/24/20 09:00 11/27/20 08:07 Cholecalciferol 1,000 Units (25 Mcg) Tab PO 2,000 units DAILY SABINA Administration Digoxin 0.25 mg 11/27/20 09:00 11/27/20 08:06 Digoxin 0.25 Mg Tab PO 0.25 mg QAM SABINA Administration Ergocalciferol 1.25 mg 11/24/20 09:00 11/24/20 09:05 Ergocalciferol 1.25 Mg(50,000 Units) Cap PO 1.25 mg Q7DAYS SABINA Administration Fluconazole 100 mg 11/24/20 09:00 11/27/20 08:06 Fluconazole 100 Mg Tab PO 100 mg DAILY SABINA Administration Furosemide 20 mg 11/24/20 09:00 11/27/20 08:06 Furosemide 20 Mg Tab PO 20 mg DAILY SABINA Administration Metoprolol Tartrate 25 mg 11/26/20 21:00 11/27/20 08:06 Metoprolol Tartrate 25 Mg Tab PO 25 mg BID SABINA Administration Miscellaneous Medication 1 pkt 11/26/20 21:00 11/27/20 08:05 Phos-Nak 1 Pkt Pack PO 11/27/20 14:00 1 pkt BID SABINA Administration Sodium Chloride 10 ml 11/24/20 09:00 11/27/20 08:06 Flush - Normal Saline 10 Ml Syringe IVF 10 ml Q12HR SABINA Administration - Exam General Appearance: NAD, awake alert Eye: PERRL ENT: normocephalic atraumatic Neck: supple Heart: RRR, normal peripheral pulses Respiratory: normal chest expansion, rales Neurological: cranial nerve grossly intact, no focal deficits Psychiatric: A&O x 3 Hosp A/P - Plan Septic shock - UA suggestive of UTIpossible source Sepsis secondary to UTI -Urine cultures so far no growth -Cultures no growth -Vancomycin and cefepime Hypotension secondary to sepsis -Proved with trial of Levophed. Acute metabolic encephalopathy secondary to above -She appears to be back to baseline she is alert oriented x3 today. A. fib with RVR --Status post IV amiodarone infusion. --Daily INR, on Coumadin Acute hypoxic respiratory failure Likely secondary to flash pulmonary edema from A. fib RVR with severe valvulopathy. Severe mitral regurgitation; the atrial enlargement Pulmonary hypertension Acute CHF exacerbation with preserved EF -She was anticoagulated with Coumadin and her INR was slightly elevated. We will DC the Coumadin and restart when the INR is less than 3. PORFIRIO -Hyperkalemia -Kayexalate seems to be helping but still potassium on the high end in the setting of kidney injury. -Appreciate the renal input -Anemia stable Full code 26th Will monitor her urine output but she does not need to have Stanley. She is off the pressor. Her INR is still 3.9 so we are holding the Coumadin until INR less than 3. Patient also noted to have some vaginal white discharge. I am empirically treating her with the p.o. fluconazole. With the fluconazole INR expected to be trending up - so not giving Coumadin until INR is less than 3. DC the Stanley. If critical care is okay will plan to transfer her to telemetry bed 2 -We will switch the IV antibiotics to p.o. cultures were negative so far -Starting low-dose Coumadin as her INR today 2.5; monitor closely as she is on fluconazole Her bicarb is trending up--bicarbonate supplement has been discontinued. Vitamin D deficiency being supplemented. I started her on daily Augmentin for urinary tract infection. she is in afib; Given her cardiomyopathy and severe valvulopathy of mitral regurgitation and the presentation with volume overload, she would benefit with short inpatient card iac rehab. We will check with the dependency case manager on that plan. She does have a good family support. If rehab is not an option she would be able to go home with home physical therapy. Pending cardiology as well as renal clearance. she is a high risk patients patient with cardiomyopathy valvulopathy and CHF for repeat readmissions as evidenced by the last few admissions. Currently she is euvolemic. I think with the diuresis she has some contraction alkalosis will correct that with the couple of days of Diamox. Possible cath either today or tomorrow. She is an uninsured patient. 30 Cath report pending. - Hemoglobin stable Creatinine improved. She has metabolic alkalosis possibly secondary to aggressive diuresis Currently low-dose Lasix of 20 mg daily Her INR is slightly improved to 1.9
[2020-11-27 13:11] VITALS: BP 127/63
--- NOTE | 2020-11-27 13:22 | PDOC.DS.DS ---
Provider - Provider Date of Admission: 11/21/20 23:15 Admitting Provider: Mehul Sorenson MD Primary Care Physician: ALVINO SILVA MD Course - Hospital Course Hospital Course: 55-year-old female presented with Septic shock - UA suggestive of UTIpossible source Sepsis secondary to UTI -Urine cultures so far no growth -s/p Vancomycin and cefepime -Charged with Augmentin Acute metabolic encephalopathy secondary to above-resolved A. fib with RVR --Status post IV amiodarone infusion. -Controlled with Lopressor and digoxin -Anticoagulated with Coumadin Acute hypoxic respiratory failure Likely secondary to flash pulmonary edema from A. fib RVR with severe valvulopathy. Severe mitral regurgitation; the atrial enlargement Pulmonary hypertension Acute CHF exacerbation with preserved EF --Patient diuresed --She had a cath on did not show any obstructive coronary artery disease. Regarding her severe mitral regurgitation she should be considered for valvuloplasty versus valve replacement. That has to be pursued at a tertiary care center. -Lack of insurance limits for aggressive intervention along this line. She needs to get either Medicaid or other type of insurance before proceeding this. We will leave that to her sole rounder to Dr. Toney Rodriguez in [place] to look into it further. Patient counseled on adherence to medications and until the ball issue been evaluated medical management is the only option at this point. PORFIRIO -Hyperkalemia -Renal function improved back to baseline and she has been discharged with very low-dose Lasix. Patient needs to follow-up with her primary care physician to repeat basic metabolic panel as well as INR level as patient is discharged with the digoxin Lasix and Coumadin at 5 mg dose. Patient has to follow with Dr. Toney Rodriguez sole rounder regarding her severe mitral regurgitation. It appears without insurance, going to be very challenging. She is also not eligible for inpatient cardiac rehab due to lack of insurance. She can follow as an outpatient therapy if needed. Discharge time over 30 minutes. Resuscitation Status: 11/21/20 23:21 Resuscitation Status Routine Resuscitation Status: FULL: Full Resuscitation - Labs Lab Results: 11/26/20 07:00 11/27/20 05:02 Abnormal Lab Results - Last 48 hrs 11/26/20 07:00: Carbon Dioxide 34 H, BUN 42 H 11/26/20 07:00: RBC 3.13 L, Hgb 8.5 L, Hct 27.4 L, MCHC 31.1 L, RDW 17.3 H 11/26/20 07:00: Phosphorus 2.2 L, Albumin 2.5 L 11/26/20 14:20: ABG O2 Content 5.8 L 11/27/20 05:02: PT 22.4 H 11/27/20 05:02: Carbon Dioxide 31 H, BUN 32 H Microbiology - Entire Visit 11/21/20 21:45 Central Line - Right Common Femoral Vein Blood Culture - Final NO GROWTH IN 5 DAYS 11/21/20 21:43 Central Line - Right Common Femoral Vein Blood Culture - Final NO GROWTH IN 5 DAYS 11/21/20 21:56 Urine Straight Catheter Urine Culture - Final NO GROWTH AT 36 HOURS - Physical Exam Vitals: Vital Signs (12 hours) Temp Pulse Pulse Pulse Resp BP BP 11/27/20 11:12 97.9 F 86 18 11/27/20 09:12 71 73 127/63 118/58 L 11/27/20 06:56 97.6 F 87 18 11/27/20 04:41 97.7 F 78 20 11/27/20 04:39 87 BP BP Pulse Ox 11/27/20 11:12 118/78 96 11/27/20 09:12 11/27/20 06:56 116/76 97 11/27/20 04:41 105/59 L 96 11/27/20 04:39 Weight Weight 180 lb 6.4 oz Most Recent Monitor Data Heart Rate from ECG 72 NIBP 95/68 NIBP BP-Mean 77 Respiration from ECG 15 SpO2 100 Physical Exam: The patient was seen and examined on the day of discharge. Cleared by the sole rounder to go home today Plan - Discharge Medications Prescriptions: Amoxicillin/Potassium Clav [Augmentin] 500 mg PO Q12HR 5 Days #10 tab Digoxin [Lanoxin] 0.125 mg PO DAILY 30 Days #30 tab Furosemide [Lasix] 20 mg PO DAILY 30 Days #30 tab Home Medications: Medication Instructions Recorded Confirmed Type Aspirin [Ecotrin Low Strength] 81 mg PO DAILY #30 tab 10/21/20 11/22/20 Rx Warfarin Sodium [Coumadin] 5 mg PO 1700 #30 tab 10/21/20 11/22/20 Rx Metoprolol Tartrate [Lopressor] 25 mg PO BID #60 tab 11/14/20 11/22/20 Rx Furosemide 20 mg PO QAM 11/22/20 11/22/20 History Amoxicillin/Potassium Clav 500 mg PO Q12HR 5 Days #10 tab 11/27/20 Rx [Augmentin] Digoxin [Lanoxin] 0.125 mg PO DAILY 30 Days #30 tab 11/27/20 Rx Furosemide [Lasix] 20 mg PO DAILY 30 Days #30 tab 11/27/20 Rx Allergies: No Known Allergies Allergy (Verified 11/22/20 01:35) PER E.R.VISIT NOTES - Discharge Instructions Discharge Instructions:: Follow-up follow-up with PCP in 1 week follow-up with Dr. Toney Rodriguez sole rounder in [place] Try to get the insurance at least Medicaid that would help in looking into further cardiac intervention Do not skip any cardiac medications You also need to check at the labs specifically metabolic panel as well as INR as you are on digoxin and Coumadin. Activity:: Activity as Tolerated Nourishment:: Heart Healthy Diet - Follow up Plan Referrals: Cardiac Rehab - [place] [Outside] - 7 Days (Your doctor has ordered outpatient cardiac rehab for you to begin within 1-2 weeks after you go home from the hospital. The location nearest to you is the [facility]. The front office in [place] will call you in 3-5 days to get you scheduled for your evaluation. If you do not receive a call, please reach out to them at [phone] and request an appointment. Should you have any trouble or need assistance, please call the cardiac rehab main line in [place] at [phone]. ) ALVINO SILVA MD [Primary Care Provider] - Disposition: HOME Quality - Care Measures CORE MEASURES:: N/A
[2020-11-27] MEDS ORDERED: Warfarin Sodium 5 MG TAB PO SCH (17:00)
--- NOTE | 2020-11-30 14:52 | EKG ---
Test Reason : Blood Pressure : / mmHG Vent. Rate : 124 BPM Atrial Rate : 129 BPM P-R Int : 000 ms QRS Dur : 080 ms QT Int : 166 ms P-R-T Axes : 000 089 270 degrees QTc Int : 238 ms Atrial fibrillation with rapid ventricular response T wave inversion V6, I, III, aVF Motion artifact V2 Confirmed by LEAH MARIN DO ([id number]), technical editor CARLOS ORTEGA ([id number]) on 11/30/2020 2:51:40 PM Referred By: Confirmed By:LEAH MARIN DO
== END 2020-11-27 15:43 | disposition home or self-care (01) | DRG 871 ==
LOC: ERS 21:22 → CCU 23:15 → 2NO 11-23 16:24
PROVIDERS: ADMIT Student in an Organized Health Care Education/Training Program; ATTEND Internal Medicine
PROC: 3E033XZ Introduction of Vasopressor into Peripheral Vein, Percutaneous Approach (ICD-10-PCS; 2020-11-21)
PROC: 4A023N8 Measurement of Cardiac Sampling and Pressure, Bilateral, Percutaneous Approach (ICD-10-PCS; principal; 2020-11-26)
PROC: B2161ZZ Fluoroscopy of Right and Left Heart using Low Osmolar Contrast (ICD-10-PCS; 2020-11-26)
DX: A41.9 Sepsis, unspecified organism (principal); R65.21 Severe sepsis with septic shock; G93.41 Metabolic encephalopathy; J96.01 Acute respiratory failure with hypoxia; I50.33 Acute on chronic diastolic (congestive) heart failure; N39.0 Urinary tract infection, site not specified; N17.9 Acute kidney failure, unspecified; I13.0 Hypertensive heart and chronic kidney disease with heart failure and stage 1 through stage 4 chronic kidney disease, or unspecified chronic kidney disease; E87.2 Acidosis; Z20.828 Contact with and (suspected) exposure to other viral communicable diseases; I27.20 Pulmonary hypertension, unspecified; I34.0 Nonrheumatic mitral (valve) insufficiency; E87.5 Hyperkalemia; N18.9 Chronic kidney disease, unspecified; I48.0 Paroxysmal atrial fibrillation; E55.9 Vitamin D deficiency, unspecified; F17.210 Nicotine dependence, cigarettes, uncomplicated; D63.1 Anemia in chronic kidney disease; Z79.82 Long term (current) use of aspirin; Z79.899 Other long term (current) drug therapy; Z79.02 Long term (current) use of antithrombotics/antiplatelets; Z79.01 Long term (current) use of anticoagulants
CPT/HCPCS: 0240U; 36415; 36600; 51701; 71045; 76770; 80048; 80162; 80202; 80306; 81001; 81003; 81015; 82040; 82306; 82570; 82805; 82810; 83605; 83735; 84100; 84156; 84300; 84443; 84540; 85025; 85610; 85730; 87086; 93005; 93306; 93460; 93798; 94760; 96365; 96366; 96368; 96375; 99152; 99153; J0282; J0692; J1160; J1644; J1815; J2250; J3370; J3490; J7050; J7070; Q9967